=== PATIENT | male | born 1935 | race Caucasian/White ===

== ENCOUNTER 2023-09-07 21:00 | Inpatient (IN) | payer OTHER, SELFPAY ==
[2023-09-07] VITALS (7 sets, daily range): BP systolic 96–128; BP diastolic 54–89; BMI 28.8
[2023-09-07 12:03] LABS: % Basophils 0.4 % (0-2); % Eosinophils 0.2 % (0-6); % Immature Granulocytes 0.7 % (0-0.5); % Lymphocytes 9.8 % (20.5-51.1); % Monocytes 6.4 % (1.7-9.3); % Neutrophils 82.5 % (42.2-75.2); Absolute Basophils 0.1 10^3/uL (0-0.2); Absolute Immature Granulocytes 0.1 10^3/uL (0-0.05); Absolute Lymphocytes 1.7 10^3/uL (1.2-3.4); Absolute Monocytes 1.1 10^3/uL (0.1-0.6); Absolute Neutrophils 13.9 10^3/uL (1.4-6.5); Hematocrit 33.3 % (39.0-52.0); Hemoglobin 11.8 g/dL (13.0-18.0); Mean Corp Hgb Conc. 35.4 g/dL (33.0-37.0); Mean Corpuscular Hgb 33.6 pg (27.0-31.0); Mean Corpuscular Volume 94.9 fL (80.0-94.0); Mean Platelet Volume 10.8 fL (7.4-10.4); Nucleated Red Blood Cells % 0.1 % (-); Platelet Count 251 10^3/uL (130-400); Red Blood Cell Count 3.51 10^6/uL (4.70-6.10); White Blood Cell Count 16.9 10^3/uL (4.8-10.8)
[2023-09-07 12:14] LABS: ALT (SGPT) 18 U/L (0-50); AST (SGOT) 36 U/L (17-59); Albumin 3.9 g/dl (3.5-5.0); Alkaline Phosphatase 104 U/L (38-126); Blood Urea Nitrogen 19 mg/dl (9-20); Calcium 9.7 mg/dl (8.4-10.2); Carbon Dioxide 21 mmol/L (22-30); Chloride 105 mmol/L (98-107); Glucose 94 mg/dl (70-99); Potassium 3.4 mmol/L (3.5-5.1); Sodium 140 mmol/L (135-145); Total Bilirubin 1.6 mg/dl (0.2-1.3); Total Protein 6.5 g/dl (6.3-8.2); eGFR > 60.00
--- NOTE | 2023-09-07 16:44 | ED.GENMED ---
History of Present Illness
General
Chief Complaint: Swelling
Time Seen by Provider: 09/07/23 15:50
Travel History
Have you had any contact with someone who has COVID-19?: No
Do you have any symptoms of coronavirus? Fever > 100 degrees, chills, cough, shortness of breath, sore throat, loss of taste or smell, muscle aches, or headache?: No
History of Present Illness
History of Present Illness:
88-year-old male with history of aortic stenosis, coronary artery disease, hypertension, and hyperlipidemia presents to the emergency department for evaluation of progressive worsening left jaw swelling over the past 2 days. Has had difficulty
eating and swallowing fluids as a result. Denies any injuries or falls. Denies any fevers. Attempted to go to his dentist today however his dentist does not see emergent cases.
Past History
Past History
ED Past Medical History: CVA, HTN, Hypercholesterolemia and Other (BPH)
ED Past Surgical History: Orthopedic
Patient has exhibited threatening behavior?: No
PSI?: No
Social History
Tobacco: Former smoker
Alcohol: Occasional
Personal:
Living: alone
Family History
Family History: Negative Diabetes, Hypertension or CAD
Review of Systems
Review of Systems
Allergies reviewed?: Yes
All Other Systems: ROS reviewed and negative except as documented in HPI and ROS
Phy Exam
Physical Exam
Physical Exam:
GEN: Well appearing, NAD, WDWN
HEENT: Oral mucosa moist, no scleral icterus. Significant swelling to the left mandible and left lower gingiva, moderate trismus, oropharynx appears clear however difficult to visualize due to trismus. There is associated left cervical adenopathy
Cardiac: Regular rate
Lung: No respiratory distress, no tachypnea
MSK: No gross deformity or injuries
Skin: Good color, no pallor or jaundice, no rashes
Neuro: AO x3, moves all extremities freely
Psych: Calm, cooperative
Scores
Heart Failure Risk
Heart Failure Risk Score: Not Applicable
Course
Orders/Labs/Results
Orders:
Orders
09/07/23 11:53
Complete Blood Count/With Diff Urgent
Comprehensive Metabolic Panel Urgent
09/07/23 16:06
CT Neck With Iv Contrast Urgent
Comment:
Reason For Exam: L jaw swelling
0.9% Sodium Chloride 1000 ml [Nss] 1,000 ml IV BOLUS
09/07/23 16:24
Lactic Acid Q4H
Comment: CANCEL 2nd LACTIC ACID IF 1st LACTIC ACID IS LESS THAN 2
Blood Culture Q30M
GERDA Source: Blood/Venous
Specimen Description:
09/07/23 16:47
Blood Culture Q30M
GERDA Source: Blood/Venous
Specimen Description:
09/07/23 17:00
Ampicillin/Sulbactam 3 G [Unasyn] 3 gm 0.9% Sodium Chloride 100 ml [Nss] 100 ml IV NOW
Abnormal Lab Results
09/07/23
11:53
WBC 16.9 H 10^3/uL
(4.8-10.8)
RBC 3.51 L 10^6/uL
(4.70-6.10)
Hgb 11.8 L g/dL
(13.0-18.0)
Hct 33.3 L %
(39.0-52.0)
MCV 94.9 H fL
(80.0-94.0)
MCH 33.6 H pg
(27.0-31.0)
RDW 15.0 H %
(11.5-14.5)
MPV 10.8 H fL
(7.4-10.4)
Abs Immat Gran (auto) 0.1 H 10^3/uL
(0-0.05)
Absolute Neuts (auto) 13.9 H 10^3/uL
(1.4-6.5)
Absolute Monos (auto) 1.1 H 10^3/uL
(0.1-0.6)
Immature Gran % 0.7 H %
(0-0.5)
Neutrophils % 82.5 H %
(42.2-75.2)
Lymphocytes % 9.8 L %
(20.5-51.1)
Potassium 3.4 L mmol/L
(3.5-5.1)
Carbon Dioxide 21 L mmol/L
(22-30)
Total Bilirubin 1.6 H mg/dl
(0.2-1.3)
09/07/23 11:53
09/07/23 11:53
Vital Signs
Initial and Last Documented VS:
Initial Vital Signs
Temp Pulse Resp BP Pulse Ox
97.5 F 97 20 128/74 97
09/07/23 11:35 09/07/23 11:35 09/07/23 11:35 09/07/23 11:35 09/07/23 11:35
Last Documented Vital Signs
Temp Pulse Resp BP Pulse Ox
97.5 F 71 20 119/74 98
09/07/23 11:35 09/07/23 18:29 09/07/23 11:35 09/07/23 18:29 09/07/23 18:29
MDM/Problems Addressed
MDM/Problems Addressed:
Patient with moderate trismus making it challenging for him to eat and drink. There is no discernible abscess on CT. Unasyn given due to significant leukocytosis. Will require IV antibiotics and steroids to improve symptoms in order to be
suitable for discharge home
*Critical Care Note
Total Time (30-74mins, 75-104mins- exclusive of procedures): Not Applicable
ED Attending Note
-
Portions of this chart may have been created with voice recognition software.� Occasional wrong word or��sound alike� substitutions may have occurred due to the inherent limitations of voice recognition software.
Discharge Plan
Departure
Patient Disposition: Admit
Date of Disposition: 09/07/23
Time of Disposition: 19:50
Presentation/result/management discussed w/ accepting MD/DO: Hospitalist
Discharge Problem:
Dental infection, Cellulitis of face
Prescriptions:
No Action
aspirin 81 MG tablet,chewable
81 mg PO DAILY Qty: 90 0RF
potassium chloride [Klor-Con M20] 20 MEQ tablet,ER particles/crystals
20 meq PO DAILY
abiraterone 250 MG tablet
750 mg PO DAILY
prednisone 5 MG tablet
5 mg PO BID Qty: 0 0RF
calcium carbonate 500 mg calcium (1,250 mg) Tablet
500 mg PO DAILY
cholecalciferol (vitamin D3) [Vitamin D3] 50 mcg (2,000 unit) Capsule
50 mcg PO DAILY
acetaminophen 325 mg Tablet
650 mg PO Q6HPRN PRN (Reason: mild pain, fever, headache) Qty: 0 0RF
furosemide [Lasix] 40 mg Tablet
40 mg PO DAILY
atorvastatin [Lipitor] 80 mg Tablet
80 mg PO QPM
lisinopril 10 mg Tablet
10 mg PO DAILY
polyethylene glycol 3350 17 GRAMS powder in packet
8.5 grams PO DAILY
clopidogrel 75 MG tablet
75 mg PO QPM
Referrals:
Juan Manuel Murphy MD [Family Provider] -
Interventions
Interventions:
*Risk Screen - Suicide Last Done: 09/07/23 11:35
*General Assessment Last Done: 09/07/23 11:35
*Neglect/Abuse Screening Last Done: 09/07/23 11:35
*ED COVID-19 Vaccine History Last Done: 09/07/23 17:38
ED- Cardiac Assessment Last Done: 09/07/23 16:23
ED- Pulmonary Assessment Last Done: 09/07/23 16:23
[2023-09-07 16:47] LABS: Lactic Acid 1.5 mmol/L (0.7-2.0)
[2023-09-07] MEDS: NSS 1000 IV ×2 (17:10→22:29)
[2023-09-07] MEDS: UNASYN IV (18:11)
--- NOTE | 2023-09-07 20:14 | HPS.HSE ---
Addendum entered and electronically signed by Dhruv Woodward MD 09/07/23 23:17:
OMFS consulted
Original Note:
Family Physician
-
Family Physician: Juan Manuel Murphy
Chief Complaint
-
left jaw swelling
History of Present Illness
88 M with dementia, PMH significant for ASCVD, aortic stenosis, metastatic prostate cancer eval at ER for progressive worsening left jaw swelling over the past 2 days. Has had difficulty eating and swallowing fluids as a result.
Medical History
Past Medical History
Past Medical History: Reports Other (1. Proctitis, suspected stercoral. 2. Constipation. 3. Acute urinary retention. 4. Prostate cancer. 5. Dementia. 6. Atherosclerotic cardiovascular disease. 7. Aortic stenosis. 8. Benign hypertension.)
Additional Past Medical History:
1. Proctitis, suspected stercoral.
2. Constipation.
3. Acute urinary retention.
4. Prostate cancer.
5. Dementia.
6. Atherosclerotic cardiovascular disease.
7. Aortic stenosis.
8. Benign hypertension.
Past Surgical History: Reports Orthopedic
Social History
Unable to obtain full social history at this time due to: Dementia
Family History
Family History: Not pertinent
Allergies / Home Medications
Allergies reflects when Allergies were last updated in [employer].
Home Medications with original date entered in [employer]
Allergy/Medication List:
Allergies
Allergy/AdvReac Type Severity Reaction Status Date / Time
doxycycline Allergy STOMACH Verified 09/07/23 11:34
ISSUES
Home Medications
aspirin 81 mg chewable tablet 81 mg PO DAILY ##90 09/30/18
potassium chloride 20 mEq tablet,extended release(part/cryst) (Klor-Con M) 20 meq PO DAILY Supplement 06/26/21
abiraterone 250 mg tablet 750 mg PO DAILY Cancer 02/10/22
prednisone 5 mg tablet 5 mg PO BID Anti-inflammatory ##0 02/13/22
calcium carbonate 500 mg calcium (1,250 mg) tablet 500 mg PO DAILY Supplement 03/25/22
cholecalciferol (vitamin D3) 50 mcg (2,000 unit) capsule (Vitamin D3) 50 mcg PO DAILY Supplement 03/25/22
acetaminophen 325 mg tablet 650 mg PO Q6HPRN PRN mild pain, fever, headache #0 tabs 03/27/22
atorvastatin 80 mg tablet (Lipitor) 80 mg PO QPM 09/07/23
clopidogrel 75 mg tablet 75 mg PO QPM 09/07/23
furosemide 40 mg tablet (Lasix) 40 mg PO DAILY 09/07/23
lisinopril 10 mg tablet 10 mg PO DAILY 09/07/23
polyethylene glycol 3350 17 gram oral powder packet 8.5 grams PO DAILY 09/07/23
Review of Systems
-
Constitutional: Reports No Symptoms
EENT: Reports See HPI
Respiratory: Reports No Symptoms
Cardiac: Reports No Symptoms
Abdomen/GI: Reports No Symptoms
: Reports No Symptoms
Musculoskeletal: Reports No Symptoms
Skin: Reports No Symptoms
Neurological: Reports No Symptoms
Endocrine: Reports No Symptoms
Hematologic/Lymphatic: Reports No Symptoms
Psych: Reports No Symptoms
Physical Exam
Vital Signs
Vital Signs
Temp Pulse Resp BP Pulse Ox
97.5 F 75 20 117/76 98
09/07/23 11:35 09/07/23 19:52 09/07/23 11:35 09/07/23 19:52 09/07/23 19:52
Physical Exam
General: Other (see below )
Laboratory Results
-
09/07/23 11:53
09/07/23 11:53
Laboratory Results
Lactic Acid Cancelled 09/07/23 20:15
Total Bilirubin 1.6 mg/dl (0.2-1.3) H 09/07/23 11:53
AST 36 U/L (17-59) 09/07/23 11:53
ALT 18 U/L (0-50) 09/07/23 11:53
Alkaline Phosphatase 104 U/L (38-126) 09/07/23 11:53
Data Reviewed
-
CT Scan: Report Reviewed by me
Lab Data: Labs Reviewed by me
Old Records: Reviewed
Impression/Plan
-
Reviewed VS: Afebrile. No ST. BP 115/75
PE
Gen: not toxic
HEENT: Significant swelling to the left mandible and left lower gingiva, moderate trismus, oropharynx appears clear, difficult to visualize due to trismus.
Neck: supple
Lungs: CTA
Cor: RRR S1 S2
Abdomen: soft benign abdomen
LEASE PURCHASE TRUCK DRIVER: NFND
MS: no edema
Psych: dementia
Data
WCC 16.9
Hgb 11.8 - baseline low 12s - hi 12s
MCV 98
K3.4 CO2 21
Cr 1.1 eGFR > 60
TB 1.6
BCx sent
09/07/[address]:
- There is facial swelling on the left, no discrete abscess in the soft tissues.
- There is a lucency in the #21 tooth in the left mandible. Question tooth abscess causing the soft tissue swelling. Correlation with previous dental x-rays. The examination is severely limited due to the artifact from the dental amalgam.
- No change in a 3 cm soft tissue mass in the right side of the oropharynx. This has been felt to represent a benign lesion.
- No adenopathy.
- Osseous metastatic disease has been noted on prior imaging, patient with a history of prostate cancer and bone metastatic disease.
Prior admission: 02/09/22 - 02/13/22; Confusion and weakness suspected secondary to proctitis.
ASSESSMENT & PLAN
No. 21 tooth presumed tooth abscess causing the soft tissue swelling of Lt face
3 cm soft tissue mass in the right side of the oropharynx
No LAD
- conr. empiric IV Unasyn
- IVF
- Narcotic analgesia PRN
Dementia Alzheimer type ([facility])
- HX acute delirium during previous hospitalizations.
ASCVD
Aortic Stenosis
- Stable. No chest pain / dyspnea / etc.
- Continue DAPT, statin.
Metastatic Prostate Cancer
- Multiple bony metastases noted on prior imaging.
- PET done 10/2021 with only FDG avid lesion noted in L3. Other lesions sclerotic.
- Continue Casodex.
Benign Hypertension
Azotemia
- Stable.
- on lisinopril
DVT Prophylaxis: SQH
Code Status: DNR per prior record
IP MS
[2023-09-07] MEDS: DECADRON 6 MG IV (20:20)
--- NOTE | 2023-09-07 21:07 | CON.ORS ---
Consultation - Oral Surgery
Subjective
88 year old male with past medical history of dementia, ASCVD, HTN, aortic stenosis, metastatic prostate cancer consulted for left facial cellulitis. Patient presented to ED for worsening left facial swelling over the past 2 days and reported he
has had pain in the left lower teeth but is unsure which one. Patient was alone in the room. He reported the swelling got worse, he has difficulty opening his mouth due to pain and swelling with difficulty eating and drinking but is still able to
tolerate PO. Patient denies dysphagia, dyspnea or orthopnea and is on room air. Patient reports he saw a dentist not too long ago but was going to see a new dentist. Denies N/V/F/C at home. WBC count is 16.9 today.
Past Medical History
Past Medical History: Arrhythmia, CAD, Cancer and HTN
Past Surgical History: Orthopedic
Family History: Not Pertinent
Alcohol: None
Drug: None
Tobacco: Non-smoker
Medications / Allergies
Allergies
Allergy/AdvReac Type Severity Reaction Status Date / Time
doxycycline Allergy STOMACH Verified 09/07/23 11:34
ISSUES
Review of Systems
Eyes: Denies Blurry Vision or Double Vision
ENT: Reports Tooth Pain (left mandibular tooth pain but unsure which one) and Other (left facial swelling with trismus due to pain and swelling)
Cardiovascular: Reports No Symptoms
Respiratory: Reports No Symptoms; Denies Shortness of Breath
Gastrointestinal: Reports No Symptoms; Denies Nausea/Vomiting
Genitourinary: Reports Deferred
Vital Signs
Temp Pulse Resp BP Pulse Ox
36.4 C 75 20 106/54 98
09/07/23 11:35 09/07/23 20:24 09/07/23 11:35 09/07/23 20:24 09/07/23 20:24
Physical Exam
General: Not in Acute Distress
Extra-oral Exam: Edema (Left buccal/facial edema with tenderness to palpation, slight induration to palpation, no fluctuance, no erythema, no warmth to touch, left inferior border of mandible is palpable), Tenderness to Palpation (Left buccal/facial
edema with tenderness to palpation, slight induration to palpation, no fluctuance, no erythema, no warmth to touch, left inferior border of mandible is palpable), V2 10/10 Bilaterally, V3 10/10 Bilaterally and Other (Trismus to 15-20 due to pain and
swelling but I can open patient up more with pressure); Negative Erythema (No left facial erythema)
Intra-oral Exam: Edema (Left buccal submandibular edema without erythema but with tenderness to palpation, no purulent discharge, slight induration to area, no fluctuance, erupted teeth #20,21,22 with distal caries on tooth #21, no floor of the
mouth edema), Erythema (no left buccal or lingual mandibular erythema), Induration, Missing Teeth and Floor of Mouth Soft Without Elevation; Negative Purulent Discharge, Gingival Abscesses or Fistulas or Fluctuance
Imaging Results
CT Neck with IV contrast shows:
There is facial swelling on the left, no discrete abscess in the soft tissues and there is a lucency in the #21 tooth in�the left mandible where there is a '?' on the scan showing a cavity on the distal aspect of tooth #21 and not an acute abscess.
Tooth #20 appears to be root canal treated with a chronic periapical pathology at the root.��
CT Results
CT Neck with IV contrast shows:
There is facial swelling on the left, no discrete abscess in the soft tissues and there is a lucency in the #21 tooth in�the left mandible where there is a '?' on the scan showing a cavity on the distal aspect of tooth #21 and not an acute abscess.
Tooth #20 appears to be root canal treated with a chronic periapical pathology at the root.��
Assessment / Plan
88 year old male consulted for left facial cellulitis after presenting to the ED for worsening left facial swelling over the past 2 days with history of left mandibular tooth pain found to have cellulitis/inflammation of the left face/mandible
without any localized abscess. The cellulitis could be related to either teeth #20,21 and will require evaluation as an outpatient for possible extraction. Due to the patient having an elevated WBC at 16.9 and cellulitis on examination and CT scan,
I would recommend he get several doses of IV antibiotics (IV Unasyn) as an inpatient while in the hospital and then discharge on Augmentin 875mg BID x 10 days with possible addition of Flagyl 500mg q8h x 10 days and follow-up with oral surgery as an
outpatient for evaluation and treatment. Due to the lack of abscess collection, there is no indication for incision and drainage at this time.
1. No surgical treatment indicated at this time
2. IV antibiotics (IV Unasyn) as an inpatient while in the hospital
3. Discharge on Augmentin 875mg BID x 10 days with possible addition of Flagyl 500mg q8h x 10 days
4. Follow-up with oral surgery as an outpatient for evaluation and treatment
Data Reviewed
Diagnostic Imaging: Image personally visualized and interpreted, Report Reviewed by me, Discussed with Nurse and Discussed with Patient
CT Scan: Image personally visualized and interpreted, Report Reviewed by me, Discussed with Nurse and Discussed with Patient
Labs: Labs Reviewed by me and Discussed with Patient
[2023-09-08] VITALS (8 sets, daily range): BP systolic 107–146; BP diastolic 52–115; BMI 31.4
[2023-09-08] MEDS: UNASYN IV ×4 (05:47→17:54)
[2023-09-08 05:55] LABS: % Basophils 0.3 % (0-2); % Immature Granulocytes 0.8 % (0-0.5); % Lymphocytes 3.6 % (20.5-51.1); % Monocytes 2.7 % (1.7-9.3); % Neutrophils 92.6 % (42.2-75.2); Absolute Immature Granulocytes 0.1 10^3/uL (0-0.05); Absolute Lymphocytes 0.4 10^3/uL (1.2-3.4); Absolute Monocytes 0.3 10^3/uL (0.1-0.6); Absolute Neutrophils 10.9 10^3/uL (1.4-6.5); Hematocrit 28.7 % (39.0-52.0); Mean Corp Hgb Conc. 34.8 g/dL (33.0-37.0); Mean Corpuscular Hgb 32.9 pg (27.0-31.0); Mean Corpuscular Volume 94.4 fL (80.0-94.0); Mean Platelet Volume 10.7 fL (7.4-10.4); Nucleated Red Blood Cells % 0 % (-); Platelet Count 214 10^3/uL (130-400); Red Blood Cell Count 3.04 10^6/uL (4.70-6.10); Red Cell Dist. Width 14.7 % (11.5-14.5); White Blood Cell Count 11.8 10^3/uL (4.8-10.8)
[2023-09-08 06:16] LABS: Blood Urea Nitrogen 17 mg/dl (9-20); Calcium 8.4 mg/dl (8.4-10.2); Carbon Dioxide 23 mmol/L (22-30); Chloride 109 mmol/L (98-107); Estimated Creatinine Clearance 60 ml/min; Glucose 117 mg/dl (70-99); Potassium 3.3 mmol/L (3.5-5.1); Sodium 139 mmol/L (135-145); eGFR > 60.00
[2023-09-08] MEDS: MIRALAX PO (09:15)
[2023-09-08] MEDS: ZESTRIL PO (09:15)
[2023-09-08] MEDS: LASIX PO (09:15)
[2023-09-08] MEDS: LOW STRENGTH ASPIRIN PO (09:15)
[2023-09-08] MEDS: DECADRON 4 MG IV ×2 (09:15→20:45)
[2023-09-08] MEDS: HEPARIN 5000 UNITS SC ×2 (09:15→20:45)
[2023-09-08] MEDS: KCL PO (09:15)
[2023-09-08] MEDS: NSS 1000 IV (09:16)
[2023-09-08] MEDS: NON-FORMULARY ITEM PO (12:22)
--- NOTE | 2023-09-08 15:54 | W.PN.HOSP.TC ---
Today's Communication/Plan
-
continue abx
cl diet
Assessment / Plan
Assessment / Plan
09/07/[address]:
- There is facial swelling on the left, no discrete abscess in the soft tissues.
- There is a lucency in the #21 tooth in� the left mandible. Question tooth abscess causing the soft tissue swelling. Correlation with previous dental x-rays. The examination is severely limited due to the artifact from the dental amalgam.
- No change in a 3 cm soft tissue mass in the right side of the oropharynx. This has been felt to represent a benign lesion.
- No adenopathy.
- Osseous metastatic disease has been noted on prior imaging, patient with a history of prostate cancer and bone metastatic disease.

1. Left lower mandible odontogenic abscess involving tooth #21
Left facial cellulitis
-CT neck finding as above
-Evaluated by OMFS and no indication for surgery
-maintain on Unasyn for now
-CL diet , will advance depending on patient tolerated
2. Sacral/buttock pressure inj - POA
- wound care consulted
3. Metastatic prostate cancer
- Multiple bony metastases noted on prior imaging.
- PET done 10/2021 with only FDG avid lesion noted in L3.� Other lesions sclerotic.
- Resume back on abiraterone home dose
CAD s/p LCX/RCA stenting
Chronic normocytic anemia
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
Coronary disease
Sev Aortic stenosis s/p TAVR
Essential HTN
HLD
DVT Prophylaxis: SQH
Code Status:� DNR per prior record
Anticipated Discharge: 24 - 48 hours
Subjective/Interval History
-
Date of Service: September 08, 2023
Resting comfortably in bed
complaining some pain in left Mandible/facial area
Objective Data
-
Labs:
Laboratory Results
09/08/23
05:40
WBC 11.8 H
Hgb 10.0 L
Hct 28.7 L
Plt Count 214
Sodium 139
Potassium 3.3 L
Chloride 109 H
Carbon Dioxide 23
BUN 17
Creatinine 0.9
Glucose 117 H
Calcium 8.4
Vital Signs:
Vital Signs
Temp Pulse Resp BP Pulse Ox
98.5 F 69 18 110/60 95
09/08/23 07:57 09/07/23 23:54 09/07/23 23:54 09/08/23 05:00 09/08/23 13:15
Review of Systems
-
All other systems: Reviewed and negative
Physical Exam
-
General: Comfortable
HEENT: Other (left facial swelling, tender ); Negative Oxygen
Respiratory: Clear to Auscultation
Cardiac: Regular Rhythm and S1/S2; Negative Murmur
GI: Soft, Nontender and Nondistended
Neuro: Awake, Alert, No Motor Deficits and Nonfocal/Grossly Intact
Psych: Calm
--- NOTE | 2023-09-08 15:57 | PTCARENOTE ---
Received pt from ER via stretcher, accompanied by ER staff x1 and pt's daughter. Pt drowsy but arousable, keeps eyes closed when conversing; oriented to self/place/birthdate; forgetful. MARINELLI very slowly; unable to assist with transfer to bed. Fall
prec initiated. VSS. On room air- pulse ox 98%, no SOB noted. Abd obese, soft, to start clear liquids; aspiration prec maintained. Incont large amts BM on arrival to [facility]. Incont urine. Pt with Lt facial redness/Lt facial edema. IVF's NSS @
80 ml/hr infusing via Rt AC site without sx of infiltration. Resting in bed at present. Will continue to monitor.
--- NOTE | 2023-09-08 16:20 | WOUNDNOTE ---
[facility] RN note: Patient admitted with dental abscess with local soft tissue cellulitis. Patient lives at home with daughter.
See H&P for complete history.
PMH: ASCVD, aortic stenosis, metastatic prostate ca with bony mets, proctitis, constipation, acute urinary retention, dementia, meniscus repair.
Wound Location and type/assessment: Patient admitted with: R hip deep dermal stage 2 vs DTI with scarring suspect from chronic pressure, wound pink with purple area, scabbed area and yellow fibrin. Sacral/coccyx/buttocks dull red along with MASD
and L sacral buttocks red area. R plantar lateral 5th MTH dry callus. Faint fungal rash noted on R lateral heel.
Appetite: on clear liquid diet currently.
Pressure redistribution devices in place: Advanta with Accumax. Patient cannot turn self in bed. Spoke with ANNEL Alvarado re: recommend air overlay or air mattress.
Plan: R hip dressing changed. Silicone foam applied to sacrum. Patient turned with help from ANNEL Alvarado. Heels off bed with pillow.
Updated and confirmed orders with Dr. Nevarez.
Updated care plan and will follow as needed.
Note to case management of equipment requested for discharge: air mattress recommended.
Recommend follow up at wound care center and crop farm helper upon discharge.
--- NOTE | 2023-09-08 16:26 | WOUNDNOTE ---
SACRAL COCCYX/BUTTOCKS
--- NOTE | 2023-09-08 16:27 | WOUNDNOTE ---
R PLANTAR LATERAL 5TH MTH
[2023-09-08] MEDS: FLUSH (NSS) 1 FLUSH IV (17:54)
[2023-09-08] MEDS: LIPITOR PO ×2 (17:54→18:01)
[2023-09-08] MEDS: PLAVIX 75 MG PO (17:54)
[2023-09-08] MEDS: DESENEX/MITRAZOL/ZEASORB 1 APPLIC TOPICAL (22:59)
[2023-09-08] MEDS: LOTRIMIN 1% CREAM 1 APPLIC TOPICAL (22:59)
[2023-09-09] VITALS (9 sets, daily range): BP systolic 141–163; BP diastolic 67–92; PULSE 60–61; O2SAT 95; BMI 31.4
[2023-09-09] MEDS: UNASYN IV ×5 (01:16→23:59)
[2023-09-09] MEDS: NSS 1000 IV (04:21)
[2023-09-09 06:08] LABS: Hematocrit 31.5 % (39.0-52.0); Mean Corp Hgb Conc. 34.9 g/dL (33.0-37.0); Mean Corpuscular Hgb 33.5 pg (27.0-31.0); Mean Platelet Volume 11.2 fL (7.4-10.4); Platelet Count 261 10^3/uL (130-400); Red Blood Cell Count 3.28 10^6/uL (4.70-6.10); Red Cell Dist. Width 14.5 % (11.5-14.5); White Blood Cell Count 15.7 10^3/uL (4.8-10.8)
[2023-09-09 06:33] LABS: Blood Urea Nitrogen 16 mg/dl (9-20); Carbon Dioxide 24 mmol/L (22-30); Chloride 110 mmol/L (98-107); Estimated Creatinine Clearance 62 ml/min; Glucose 137 mg/dl (70-99); Potassium 3.2 mmol/L (3.5-5.1); Sodium 138 mmol/L (135-145); eGFR > 60.00
[2023-09-09] MEDS: LOW STRENGTH ASPIRIN 81 MG PO (09:28)
[2023-09-09] MEDS: MIRALAX 8.5 GRAMS PO (09:28)
[2023-09-09] MEDS: KCL 20 MEQ PO (09:28)
[2023-09-09] MEDS: LASIX 40 MG PO (09:28)
[2023-09-09] MEDS: ZESTRIL 10 MG PO (09:29)
[2023-09-09] MEDS: DECADRON 4 MG IV ×2 (09:29→20:14)
[2023-09-09] MEDS: HEPARIN 5000 UNITS SC ×2 (09:29→20:13)
[2023-09-09] MEDS: DESENEX/MITRAZOL/ZEASORB 1 APPLIC TOPICAL ×2 (09:31→20:33)
[2023-09-09] MEDS: NON-FORMULARY ITEM 750 MG PO (09:32)
[2023-09-09] MEDS: LOTRIMIN 1% CREAM 1 APPLIC TOPICAL ×2 (09:55→20:34)
--- NOTE | 2023-09-09 14:53 | W.PN.HOSP.TC ---
Today's Communication/Plan
-
advance diet
continue abx
possible discharge tomorrow
Assessment / Plan
Assessment / Plan
09/07/[address]:
- There is facial swelling on the left, no discrete abscess in the soft tissues.
- There is a lucency in the #21 tooth in� the left mandible. Question tooth abscess causing the soft tissue swelling. Correlation with previous dental x-rays. The examination is severely limited due to the artifact from the dental amalgam.
- No change in a 3 cm soft tissue mass in the right side of the oropharynx. This has been felt to represent a benign lesion.
- No adenopathy.
- Osseous metastatic disease has been noted on prior imaging, patient with a history of prostate cancer and bone metastatic disease.

1. Left lower mandible odontogenic abscess involving tooth #21
Left facial cellulitis
-CT neck finding as above
-Evaluated by OMFS and no indication for surgery
-Facial swelling improving rapidly. Pain is getting better as well. Continue on Unasyn for now.
-Starting on mechanical soft diet.
2. Right hip pressure inj stage II - POA
- wound care consulted
3. Metastatic prostate cancer
- Multiple bony metastases noted on prior imaging.
- PET done 10/2021 with only FDG avid lesion noted in L3.� Other lesions sclerotic.
- Resume back on abiraterone home dose
CAD s/p LCX/RCA stenting
Chronic normocytic anemia
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
Coronary disease
Sev Aortic stenosis s/p TAVR
Essential HTN
HLD
DVT Prophylaxis: SQH
Code Status:� DNR per prior record
Anticipated Discharge: Within 24 hours
Subjective/Interval History
-
Date of Service: September 09, 2023
facial swelling is improved
patient requesting to be started on solid diet
Objective Data
-
Labs:
Laboratory Results
09/09/23
05:27
WBC 15.7 H
Hgb 11.0 L
Hct 31.5 L
Plt Count 261 D
Sodium 138
Potassium 3.2 L
Chloride 110 H
Carbon Dioxide 24
BUN 16
Creatinine 0.9
Glucose 137 H
Calcium 8.0 L
Vital Signs:
Vital Signs
Temp Pulse Resp BP Pulse Ox
98.1 F 59 18 150/76 96
09/09/23 07:35 09/09/23 09:28 09/09/23 07:35 09/09/23 09:28 09/09/23 07:35
I&O
09/08/23 09/09/23 09/10/23
06:59 06:59 06:59
Intake Total 740 / 740
Balance 740 / 740
Review of Systems
-
All other systems: Reviewed and negative
Physical Exam
-
General: Comfortable
HEENT: Other (left facial swelling, tender ); Negative Oxygen
Neuro: Awake, Alert, No Motor Deficits and Nonfocal/Grossly Intact
Psych: Calm
--- NOTE | 2023-09-09 15:00 | WOUNDNOTE ---
[facility] RN note: Spoke with PCT Silvia who confirmed patient is on a [employer] air overlay.
[2023-09-09] MEDS: LIPITOR 80 MG PO (18:30)
[2023-09-09] MEDS: PLAVIX 75 MG PO (18:30)
[2023-09-09 22:41] LABS: COVID-19 Antigen Negative (Negative)
[2023-09-10] MEDS: UNASYN IV ×4 (04:59→23:45)
[2023-09-10 07:00] LABS: Hematocrit 30.1 % (39.0-52.0); Hemoglobin 10.6 g/dL (13.0-18.0); Mean Corp Hgb Conc. 35.2 g/dL (33.0-37.0); Mean Corpuscular Volume 93.8 fL (80.0-94.0); Mean Platelet Volume 10.8 fL (7.4-10.4); Platelet Count 253 10^3/uL (130-400); Red Blood Cell Count 3.21 10^6/uL (4.70-6.10); Red Cell Dist. Width 14.6 % (11.5-14.5); White Blood Cell Count 14.7 10^3/uL (4.8-10.8)
[2023-09-10 07:51] LABS: Blood Urea Nitrogen 17 mg/dl (9-20); Calcium 7.8 mg/dl (8.4-10.2); Carbon Dioxide 23 mmol/L (22-30); Chloride 112 mmol/L (98-107); Estimated Creatinine Clearance 62 ml/min; Glucose 119 mg/dl (70-99); Potassium 3.4 mmol/L (3.5-5.1); Sodium 139 mmol/L (135-145); eGFR > 60.00
[2023-09-10 07:56] VITALS: BP 135/76
[2023-09-10] MEDS: LOTRIMIN 1% CREAM 1 APPLIC TOPICAL ×2 (09:04→20:20)
[2023-09-10] MEDS: DECADRON 4 MG IV (09:05)
[2023-09-10] MEDS: HEPARIN 5000 UNITS SC ×2 (09:09→20:20)
[2023-09-10] MEDS: DESENEX/MITRAZOL/ZEASORB 1 APPLIC TOPICAL ×2 (09:35→20:21)
[2023-09-10] MEDS: KCL PO (09:38)
[2023-09-10] MEDS: LASIX PO (09:38)
[2023-09-10] MEDS: ZESTRIL PO (09:39)
[2023-09-10] MEDS: MIRALAX PO (09:39)
[2023-09-10] MEDS: NON-FORMULARY ITEM PO (09:39)
[2023-09-10] MEDS: LOW STRENGTH ASPIRIN PO (09:39)
--- NOTE | 2023-09-10 11:16 | CM ---
Reviewed chart, placed a call to patient's daughter to obtain information for assessment. Patient's daughter answered and stated that she could talk. Patient's daughter stated that patient lives with her in a two story home with a full flight of
steps and two steps to enter. She described patient as dependent on her and his son who lives close, for all ADLs, personal care, dressing, bathing and ambulates short distances with an s.p cane, and a w/c for longer communal distances.
Patient's daughter assists patient with transferring from sit to stand, stand to sit, and assists him in the mornings with getting out of bed and evenings getting in bed. She confirmed that she also does all the gang supervisor pipe lines, prepares meals for
patient, does the laundry, and cleans. She drives patient to all his appointments and does all the shopping. She is retired so she stated that her main job is dedicating all caregiving to patient. Patient's son is also supportive and close and does
most of the driving. Between the both of them (he was on speakerphone) they are able to handle the scope of patient's needs. Patient's bathroom is handicap accessible and he has a shower chair.
Patient uses [facility] for all of his medications. His PCP is Dr. Juan Manuel Murphy. He does have a prescription plan.
Patient has not been to SNF in the past. He has had VN services through (PT/OT). Patient's son stated that he does not want patient to transfer to a SNF as he becomes more confused and agitated. Patient is mildly confused at baseline per his
children.
Patient's daughter and son confirmed that they can transport patient home when he is medically stable. They are agreeable to home PT/OT if indicated on behalf of medical staff and they selected VN services.
Plan: Case management will continue to follow and assist with discharge planning. Home no needs vrs home with VN services if indicated at time of discharge.
--- NOTE | 2023-09-10 12:06 | PN.CDI ---
CDI
- -
CDI:
Physician Documentation Request
Admit Date: 09/07/23 21:00
Dear Doctor Roque,
Patient admitted for face cellulitis.
Potassium chloride 20 meq PO daily ordered.
09/07/23 09/08/23 09/09/23 09/10/23
11:53 05:40 05:27 06:42
Potassium 3.4 L 3.3 L 3.2 L 3.4 L
Based on the above, could you clarify in the progress notes, the appropriate diagnosis, if significant, that supports the above abnormalities and additional evaluation, monitoring and/or treatment rendered:
Hypokalemia
Abnormal lab value insignificant
Other
Use of terms such as suspected, likely, concern for, or probable (associated with a specific diagnosis that is being evaluated, monitored, or treated as if it exists) are acceptable and can be coded in the inpatient setting, when documented at the
time of discharge.
Thank you,
Maria Alejandra Lincoln RN, BSN
CDI Specialist
Available via [facility] text
Please use your independent medical judgment in providing your response.
--- NOTE | 2023-09-10 13:02 | WOUNDNOTE ---
WOC RN note: yaneth texted Youth Development Professional Kristine Melvin re: recommend hospital bed with air overlay or air mattress; patient has R hip pressure injury.
--- NOTE | 2023-09-10 13:10 | WOUNDNOTE ---
WOC RN note: joseer texted Scallop Binder Mary Gomez re: recommend hospital bed with air overlay or air mattress; patient has R hip pressure injury.
--- NOTE | 2023-09-10 13:23 | CM ---
Received TT from CM that patient/family refused SNF.
Plan: Case management will continue to follow and assist with discharge planning. Home vrs home with VN services.
--- NOTE | 2023-09-10 13:24 | CM ---
Patient's family not agreeable with PT's SNF recommendation.
Sent home care referral to VNA liaison and forwarded bed recommendation from Wound Care Nurse
[2023-09-10 13:55] LABS: Venous Blood Gas B.E. -2.6 mmol/L (-4 to +4); Venous Blood Gas HCO3 23.2 mmol/L (22-27); Venous Blood Gas pCO2 43 mmHg (35-48); Venous Blood Gas pH 7.34 (7.32-7.43); Venous Blood Gas pO2 56 mmHg (30-50)
--- NOTE | 2023-09-10 14:15 | WOUNDNOTE ---
[facility] RN note: t/c Spoke with patient's daughter Luana who stated patient sleeps in a regular bed at home. Daughter has been aware and has been treating patient's R hip ulcer at home. Suggested a hospital bed with air overlay or air mattress.
Daughter stated she is interested in using the Waffle air overlay he has and is willing to purchase side rails for his bed. Instructed daughter pressure injury prevention measures with q 2 hr turning (30 degree turns using pillow/s), heel elevation
off bed with pillows, using air chair cushion. Daughter stated she didn't see an air chair cushion. t/c 3 W, spoke with nurse educator Onelia who will give patient an air chair cushion. t/c SPD and ordered a manual waffle air inflator and TruVue
lite boots; ANNEL Chester aware to give to daughter/patient.
[2023-09-10 14:54] VITALS: BP 122/66
--- NOTE | 2023-09-10 15:40 | W.PN.HOSP.TC ---
Today's Communication/Plan
-
continue abx
Assessment / Plan
Assessment / Plan
09/07/[address]:
- There is facial swelling on the left, no discrete abscess in the soft tissues.
- There is a lucency in the #21 tooth in� the left mandible. Question tooth abscess causing the soft tissue swelling. Correlation with previous dental x-rays. The examination is severely limited due to the artifact from the dental amalgam.
- No change in a 3 cm soft tissue mass in the right side of the oropharynx. This has been felt to represent a benign lesion.
- No adenopathy.
- Osseous metastatic disease has been noted on prior imaging, patient with a history of prostate cancer and bone metastatic disease.

1. Left lower mandible odontogenic abscess involving tooth #21
Left facial cellulitis
-CT neck finding as above
-Evaluated by OMFS and no indication for surgery
-Facial swelling improving rapidly. Pain is getting better as well. Continue on Unasyn for now.
-Starting on mechanical soft diet.
2. Right hip pressure inj stage II - POA
- wound care consulted
3. Metastatic prostate cancer
- Multiple bony metastases noted on prior imaging.
- PET done 10/2021 with only FDG avid lesion noted in L3.� Other lesions sclerotic.
- Resume back on abiraterone home dose
4. Mild TME
- patient is somnolent. avoid sedative medication. VBG showing pco2.
- No other clear issues
5. Hypokalemia
-mild, replace with 20meq
CAD s/p LCX/RCA stenting
Chronic normocytic anemia
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
Coronary disease
Sev Aortic stenosis s/p TAVR
Essential HTN
HLD
DVT Prophylaxis: SQH
Code Status:� DNR per prior record
Anticipated Discharge: Within 24 hours
Subjective/Interval History
-
Date of Service: September 10, 2023
somnolent in morning today
not co-operating with morning med administration
afebrile overnight
Objective Data
-
Labs:
Laboratory Results
09/10/23
06:42
WBC 14.7 H
Hgb 10.6 L
Hct 30.1 L
Plt Count 253
Sodium 139
Potassium 3.4 L
Chloride 112 H
Carbon Dioxide 23
BUN 17
Creatinine 0.9
Glucose 119 H
Calcium 7.8 L
Vital Signs:
Vital Signs
Temp Pulse Resp BP Pulse Ox
97.1 F 55 17 122/66 95
09/10/23 14:54 09/10/23 14:54 09/10/23 14:54 09/10/23 14:54 09/10/23 14:54
I&O
09/09/23 09/10/23 09/11/23
06:59 06:59 06:59
Intake Total 740 / 740 810 / 810
Output Total 100 / 100
Balance 740 / 740 710 / 710
Review of Systems
-
Unable to obtain full review of systems at this time due to: Acuity
Physical Exam
-
General: Negative Respiratory Distress or Appears in Distress
HEENT: Other (left lower mandibular swelling); Negative Oxygen
Neuro: Other (somnolent); Negative Oriented
[2023-09-10] MEDS: PLAVIX 75 MG PO (17:32)
[2023-09-10] MEDS: LIPITOR 80 MG PO (17:32)
[2023-09-10 23:15] VITALS: BP 145/70
[2023-09-11] MEDS: UNASYN IV ×3 (05:32→17:30)
--- NOTE | 2023-09-11 05:37 | PTCARENOTE ---
pt began audibly wheezing after repositioning/changing. SaO2 on RA 94-95%. PAM Cowartb notified, portable CXR and 1x duoneb ordered. resting comfortably at the moment, will monitor.
[2023-09-11] MEDS: DUONEB 3 ML INH (05:39)
[2023-09-11 07:00] VITALS: BP 127/68
[2023-09-11 07:39] LABS: Hematocrit 29.2 % (39.0-52.0); Hemoglobin 10.1 g/dL (13.0-18.0); Mean Corp Hgb Conc. 34.6 g/dL (33.0-37.0); Mean Corpuscular Hgb 32.9 pg (27.0-31.0); Mean Corpuscular Volume 95.1 fL (80.0-94.0); Platelet Count 224 10^3/uL (130-400); Red Blood Cell Count 3.07 10^6/uL (4.70-6.10); Red Cell Dist. Width 14.7 % (11.5-14.5); White Blood Cell Count 11.2 10^3/uL (4.8-10.8)
[2023-09-11 08:08] LABS: Blood Urea Nitrogen 16 mg/dl (9-20); Calcium 7.7 mg/dl (8.4-10.2); Carbon Dioxide 22 mmol/L (22-30); Chloride 109 mmol/L (98-107); Estimated Creatinine Clearance 70 ml/min; Glucose 99 mg/dl (70-99); Potassium 3.1 mmol/L (3.5-5.1); Sodium 138 mmol/L (135-145); eGFR > 60.00
[2023-09-11] MEDS: KCL 20 MEQ PO (08:34)
[2023-09-11] MEDS: MIRALAX 8.5 GRAMS PO (08:34)
[2023-09-11] MEDS: LOW STRENGTH ASPIRIN 81 MG PO (08:34)
[2023-09-11] MEDS: LASIX 40 MG PO (08:34)
[2023-09-11] MEDS: ZESTRIL 10 MG PO (08:35)
[2023-09-11] MEDS: HEPARIN 5000 UNITS SC ×2 (08:35→21:02)
[2023-09-11] MEDS: LOTRIMIN 1% CREAM 1 APPLIC TOPICAL ×2 (08:40→21:02)
[2023-09-11] MEDS: NON-FORMULARY ITEM 750 MG PO (08:41)
[2023-09-11] MEDS: DESENEX/MITRAZOL/ZEASORB 1 APPLIC TOPICAL ×2 (08:46→21:03)
[2023-09-11] MEDS: KCL 270 MEQ IV (09:53)
--- NOTE | 2023-09-11 10:12 | W.PN.HOSP.TC ---
Today's Communication/Plan
-
remains somnolent, check CT head
avoid sedative meds
PT eval later today
Assessment / Plan
Assessment / Plan
09/07/[address]:
- There is facial swelling on the left, no discrete abscess in the soft tissues.
- There is a lucency in the #21 tooth in� the left mandible. Question tooth abscess causing the soft tissue swelling. Correlation with previous dental x-rays. The examination is severely limited due to the artifact from the dental amalgam.
- No change in a 3 cm soft tissue mass in the right side of the oropharynx. This has been felt to represent a benign lesion.
- No adenopathy.
- Osseous metastatic disease has been noted on prior imaging, patient with a history of prostate cancer and bone metastatic disease.

1. Left lower mandible odontogenic abscess involving tooth #21
Left facial cellulitis
-CT neck finding as above
-Evaluated by OMFS and no indication for surgery
-Facial swelling improving rapidly. Pain is getting better as well. Continue on Unasyn for now.
-Starting on mechanical soft diet.
2. Right hip pressure inj stage II - POA
- wound care consulted
3. Metastatic prostate cancer
- Multiple bony metastases noted on prior imaging.
- PET done 10/2021 with only FDG avid lesion noted in L3.� Other lesions sclerotic.
- Resume back on abiraterone home dose
4. Mild TME
- patient is somnolent. avoid sedative medication.
- No other clear issues
- VBG showing normal pco2. not getting sedative medication
- Check CT head
5. Hypokalemia
-replace with 40meq IV K rider.
CAD s/p LCX/RCA stenting
Chronic normocytic anemia
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
Coronary disease
Sev Aortic stenosis s/p TAVR
Essential HTN
HLD
DVT Prophylaxis: SQH
Code Status:� DNR per prior record
Anticipated Discharge: Within 24 hours
Subjective/Interval History
-
Date of Service: September 11, 2023
patient remains somnolent
refusing medication yesterday
Objective Data
-
Labs:
Laboratory Results
09/11/23
06:26
WBC 11.2 H
Hgb 10.1 L
Hct 29.2 L
Plt Count 224
Sodium 138
Potassium 3.1 L
Chloride 109 H
Carbon Dioxide 22
BUN 16
Creatinine 0.8
Glucose 99
Calcium 7.7 L
Vital Signs:
Vital Signs
Temp Pulse Resp BP Pulse Ox
97.3 F 61 16 127/68 92
09/11/23 07:00 09/11/23 07:00 09/11/23 07:00 09/11/23 08:34 09/11/23 09:38
I&O
09/10/23 09/11/23 09/12/23
06:59 06:59 06:59
Intake Total 810 / 810 840 / 840
Output Total 100 / 100
Balance 710 / 710 840 / 840
Review of Systems
-
Unable to obtain full review of systems at this time due to: Acuity
Physical Exam
-
General: Negative Respiratory Distress or Appears in Distress
HEENT: Other (left lower mandibular swelling); Negative Oxygen
Respiratory: Clear to Auscultation
Cardiac: Regular Rhythm and S1/S2; Negative Murmur
Neuro: Negative Awake (somnolent)
[2023-09-11 15:00] VITALS: BP 119/53
[2023-09-11] MEDS: PLAVIX 75 MG PO (17:30)
[2023-09-11] MEDS: LIPITOR 80 MG PO (17:31)
[2023-09-11 23:00] VITALS: BP 109/59
[2023-09-12 07:00] VITALS: BP 102/56
[2023-09-12] MEDS: LOW STRENGTH ASPIRIN 81 MG PO (08:27)
[2023-09-12] MEDS: KCL 20 MEQ PO (08:28)
[2023-09-12] MEDS: LOTRIMIN 1% CREAM 1 APPLIC TOPICAL ×2 (08:28→20:05)
[2023-09-12] MEDS: ZESTRIL PO (08:28)
[2023-09-12] MEDS: DESENEX/MITRAZOL/ZEASORB 1 APPLIC TOPICAL ×2 (08:30→20:05)
[2023-09-12] MEDS: HEPARIN 5000 UNITS SC ×2 (08:30→20:05)
[2023-09-12] MEDS: MIRALAX PO (08:30)
[2023-09-12] MEDS: LASIX PO (08:30)
[2023-09-12] MEDS: NON-FORMULARY ITEM 750 MG PO (08:35)
--- NOTE | 2023-09-12 11:05 | CM ---
Addendum entered by Mary Gomez 09/12/23 13:09:
Daughter, Luana, reviewed facilities list and identified preference. Referrals sent via [facility]: #1 [facility]; #2 [facility]; #3 [facility], #4 [facility]
Original Note:
Plan: discharge to SNF when stable; family is agreeable
Daughter given printed list of facilities from medicare.gov website; instructed to identify 3-4 site preferences for CM before end of day today. CM contact information provided.
--- NOTE | 2023-09-12 11:35 | W.PN.HOSP.TC ---
Today's Communication/Plan
-
reg diet
snf rehab placement
Assessment / Plan
Assessment / Plan
09/07/[address]:
- There is facial swelling on the left, no discrete abscess in the soft tissues.
- There is a lucency in the #21 tooth in� the left mandible. Question tooth abscess causing the soft tissue swelling. Correlation with previous dental x-rays. The examination is severely limited due to the artifact from the dental amalgam.
- No change in a 3 cm soft tissue mass in the right side of the oropharynx. This has been felt to represent a benign lesion.
- No adenopathy.
- Osseous metastatic disease has been noted on prior imaging, patient with a history of prostate cancer and bone metastatic disease.

1. Left lower mandible odontogenic abscess involving tooth #21
Left facial cellulitis
-CT neck finding as above
-Evaluated by OMFS and no indication for surgery. will need f/u in office.
-Facial swelling has improved with residual swelling present. Continue on Unasyn for now.
-Patient not eating much, requesting regular diet. Changed.
2. Right hip pressure inj stage II - POA
- wound care consulted
3. Metastatic prostate cancer
- Multiple bony metastases noted on prior imaging.
- PET done 10/2021 with only FDG avid lesion noted in L3.� Other lesions sclerotic.
- Resume back on abiraterone home dose
4. Mild TME -resolved
- patient is somnolent. avoid sedative medication.
- No other clear issues
- VBG showing normal pco2. not getting sedative medication
- CT head normal
5. Hypokalemia
-replace PRN
CAD s/p LCX/RCA stenting
Chronic normocytic anemia
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
Coronary disease
Sev Aortic stenosis s/p TAVR
Essential HTN
HLD
DVT Prophylaxis: SQH
Code Status:� DNR per prior record
09/12 care plan discussed with daughter at bedside.
Anticipated Discharge: Within 24 hours
Subjective/Interval History
-
Date of Service: September 12, 2023
Patient awake and communicating
Feeling lethargic/tired
Not complaining excessive pain in the left jaw
Afebrile overnight
Objective Data
-
Vital Signs:
Vital Signs
Temp Pulse Resp BP Pulse Ox
98.2 F 64 17 102/56 97
09/12/23 07:00 09/12/23 07:00 09/12/23 07:00 09/12/23 08:30 09/12/23 09:33
I&O
09/11/23 09/12/23 09/13/23
06:59 06:59 06:59
Intake Total 840 / 840 1020 / 1020
Balance 840 / 840 1020 / 1020
Review of Systems
-
Respiratory: Reports No Symptoms
Cardiac: Reports No Symptoms
Abdomen/GI: Reports No Symptoms
Physical Exam
-
General: Negative Respiratory Distress or Appears in Distress
HEENT: Other (left lower mandibular swelling); Negative Oxygen
Respiratory: Clear to Auscultation
Cardiac: Regular Rhythm and S1/S2; Negative Murmur
Neuro: Awake, Alert and Oriented
[2023-09-12 15:00] VITALS: BP 121/61
[2023-09-12] MEDS: PLAVIX 75 MG PO (17:21)
[2023-09-12] MEDS: LIPITOR 80 MG PO (17:21)
[2023-09-12 23:15] VITALS: BP 129/64
[2023-09-13 07:00] VITALS: BP 143/68
[2023-09-13] MEDS: ZESTRIL 10 MG PO (08:43)
[2023-09-13] MEDS: LASIX PO ×2 (08:43→09:25)
[2023-09-13] MEDS: LOW STRENGTH ASPIRIN PO ×2 (08:43→09:25)
[2023-09-13] MEDS: HEPARIN 5000 UNITS SC ×2 (08:44→20:32)
[2023-09-13] MEDS: LOTRIMIN 1% CREAM 1 APPLIC TOPICAL ×2 (08:45→20:31)
[2023-09-13] MEDS: NON-FORMULARY ITEM PO ×2 (08:47→09:25)
[2023-09-13] MEDS: DESENEX/MITRAZOL/ZEASORB 1 APPLIC TOPICAL ×2 (08:47→20:31)
[2023-09-13] MEDS: KCL PO ×2 (08:49→08:56)
[2023-09-13] MEDS: MIRALAX PO (08:49)
[2023-09-13] MEDS: UNASYN IV ×3 (10:58→21:24)
[2023-09-13] MEDS: DUONEB 3 ML INH (11:07)
--- NOTE | 2023-09-13 13:17 | W.PN.HOSP.TC ---
Today's Communication/Plan
-
re-peat speech eval tomorrow
continue IVF, Unasyn
Assessment / Plan
Assessment / Plan
09/07/[address]:
- There is facial swelling on the left, no discrete abscess in the soft tissues.
- There is a lucency in the #21 tooth in� the left mandible. Question tooth abscess causing the soft tissue swelling. Correlation with previous dental x-rays. The examination is severely limited due to the artifact from the dental amalgam.
- No change in a 3 cm soft tissue mass in the right side of the oropharynx. This has been felt to represent a benign lesion.
- No adenopathy.
- Osseous metastatic disease has been noted on prior imaging, patient with a history of prostate cancer and bone metastatic disease.
Assessment:
Left lower mandible odontogenic abscess involving tooth #21
Left facial cellulitis
- CT neck summarized above
- OMFS evaluated; no role for surgical intervention
- continue Unasyn, day 02/06
- monitor facial swelling which has improved
Aspiration pneumonia
- continue Unasyn
- monitor for hypoxia
- nebs prn, add mucolytics
- speech therapy evaluating; strict NPO for now
Right hip pressure inj stage II - POA
- wound care consulted
Metastatic prostate cancer
- Multiple bony metastases noted on prior imaging.
- PET done 10/2021 with only FDG avid lesion noted in L3.� Other lesions sclerotic.
- Resume back on abiraterone home dose
Mild TME - resolved
- patient was somnolent. avoid sedative medication.
- No other clear issues
- VBG showing normal pco2. not getting sedative medication
- CT head normal
Hypokalemia
- replace PRN
CAD s/p LCX/RCA stenting
Chronic normocytic anemia
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
Coronary disease
Severe Aortic stenosis s/p TAVR
Essential HTN
HLD
DVT ppx: SC Heparin
Code: DNR per prior records
Anticipated Discharge: 24 - 48 hours
Subjective/Interval History
-
Date of Service: September 13, 2023
this morning with wheezing and concern for aspiration
yesterdays Xray showed RLL PNA
Objective Data
-
Vital Signs:
Vital Signs
Temp Pulse Resp BP Pulse Ox
99.7 F 76 18 143/68 95
09/13/23 07:00 09/13/23 11:13 09/13/23 11:13 09/13/23 07:00 09/13/23 11:13
I&O
09/12/23 09/13/23 09/14/23
06:59 06:59 06:59
Intake Total 1020 / 1020 840 / 840
Balance 1020 / 1020 840 / 840
Physical Exam
-
General: No Apparent Distress
HEENT: Normocephalic and Atraumatic
Respiratory: Negative Wheezes or Rales
Cardiac: Regular Rhythm and S1/S2
GI: Soft
Genito-urinary: No Costovertebral Tender
Musculoskeletal: No Edema
Neuro: AO x 3
Hematologic / Lymphatic: No Lymphadenopathy
Psych: Calm
Data Reviewed
-
Total Time Spent with Patient (in minutes): 47
Labs: Labs Reviewed by me
--- NOTE | 2023-09-13 13:56 | PTOTSP ---
SPEECH THERAPY SWALLOW EVALUATION:
Patient presents with clinical signs of oropharyngeal dysphagia, likely acute related to left lower mandible odontogenic abscess. Patient is at high risk for aspiration (given clear signs at bedside) and related complications given current
pneumonia. Patient is clearly unsafe for oral diet, hydration, or medication at this time. Recommend patient to be strict NPO with temporary alternate means for all nutrition, medication, and hydration. Patient would likely benefit from instrumental
assessment of swallowing when appropriate; however, given overt signs of aspiration with all textures at this time, recommending holding on VSE until patient demonstrating improvement at bedside. Speech therapy to follow, re-assess patient in 24
hours, provide diagnostic swallow therapy as appropriate, assess readiness for instrumental assessment of swallowing, and continue to provide education regarding aspiration risks and precautions.
RECOMMEND:
1) strict NPO with temporary alternate means for all nutrition, medication, and hydration
2) Speech therapy to follow, re-assess patient in 24 hours, provide diagnostic swallow therapy as appropriate, assess readiness for instrumental assessment of swallowing, and continue to provide education regarding aspiration risks and precautions
--- NOTE | 2023-09-13 14:14 | CM ---
Reviewed chart, [facility] can accept patient upon medical clearance. Family agreeable to transfer per discussion previous CM on case had with family. Auth will need to be obtained prior to transfer.
Plan: Case management will continue to follow and assist with discharge planning. [facility] can accept patient upon discharge.
[2023-09-13] MEDS: NSS with KCL 40 MEQ 1000 IV (14:24)
[2023-09-13 15:00] VITALS: BP 136/70
[2023-09-13 15:43] VITALS: BP 136/70
[2023-09-13] MEDS: LIPITOR PO (17:53)
[2023-09-13] MEDS: PLAVIX PO (17:53)
[2023-09-13] MEDS: TYLENOL/FEVERALL 650 MG RECTAL (21:24)
[2023-09-13] MEDS: TRANSDERM-SCOP 1 PATCH TRANSDERM (22:35)
--- NOTE | 2023-09-13 22:49 | PTCARENOTE ---
pt having a lot of oral secretions, suctioning PRN. notified PAM gomes and obtained an order for a scopolamine patch to help with secretions.
[2023-09-13 23:05] VITALS: BP 140/69
[2023-09-14] MEDS: UNASYN IV ×4 (03:21→21:36)
[2023-09-14 06:42] LABS: Hemoglobin 10.3 g/dL (13.0-18.0); Mean Corp Hgb Conc. 35.5 g/dL (33.0-37.0); Mean Corpuscular Hgb 32.7 pg (27.0-31.0); Mean Corpuscular Volume 92.1 fL (80.0-94.0); Platelet Count 204 10^3/uL (130-400); Red Blood Cell Count 3.15 10^6/uL (4.70-6.10); Red Cell Dist. Width 15.1 % (11.5-14.5); White Blood Cell Count 16.3 10^3/uL (4.8-10.8)
[2023-09-14 07:00] VITALS: BP 153/71
[2023-09-14 09:14] LABS: Blood Urea Nitrogen 9 mg/dl (9-20); Calcium 7.6 mg/dl (8.4-10.2); Carbon Dioxide 20 mmol/L (22-30); Chloride 112 mmol/L (98-107); Estimated Creatinine Clearance 62 ml/min; Glucose 66 mg/dl (70-99); Potassium 3.1 mmol/L (3.5-5.1); Sodium 141 mmol/L (135-145); eGFR > 60.00
[2023-09-14] MEDS: ZESTRIL PO (09:51)
[2023-09-14] MEDS: LOW STRENGTH ASPIRIN PO (09:51)
[2023-09-14] MEDS: MIRALAX PO (09:51)
[2023-09-14] MEDS: LOTRIMIN 1% CREAM TOPICAL (09:52)
[2023-09-14] MEDS: LASIX PO (09:52)
[2023-09-14] MEDS: KCL PO (09:52)
[2023-09-14] MEDS: DESENEX/MITRAZOL/ZEASORB TOPICAL (09:52)
[2023-09-14] MEDS: NON-FORMULARY ITEM PO (09:53)
[2023-09-14] MEDS: HEPARIN 5000 UNITS SC ×2 (10:01→20:09)
--- NOTE | 2023-09-14 10:40 | W.PN.HOSP.TC ---
Today's Communication/Plan
-
Wean O2
Unasyn
add decadron
request reevaluation by OMFS
IVF while strict NPO
Assessment / Plan
Assessment / Plan
09/07/[address]:
- There is facial swelling on the left, no discrete abscess in the soft tissues.
- There is a lucency in the #21 tooth in� the left mandible. Question tooth abscess causing the soft tissue swelling. Correlation with previous dental x-rays. The examination is severely limited due to the artifact from the dental amalgam.
- No change in a 3 cm soft tissue mass in the right side of the oropharynx. This has been felt to represent a benign lesion.
- No adenopathy.
- Osseous metastatic disease has been noted on prior imaging, patient with a history of prostate cancer and bone metastatic disease.
Assessment:
Left lower mandible odontogenic abscess involving tooth #21
Left facial cellulitis
- CT neck summarized above
- OMFS evaluated; no role for surgical intervention. Will ask for re-evaluation today
- continue Unasyn, day 03/08
- monitor facial swelling; will add Decadron to facilitate further improvement
Aspiration pneumonia
- continue Unasyn
- monitor for hypoxia
- nebs prn, add mucolytics
- speech therapy evaluating; strict NPO for now
Right hip pressure inj stage II - POA
- wound care following
Metastatic prostate cancer
- Multiple bony metastases noted on prior imaging.
- PET done 10/2021 with only FDG avid lesion noted in L3.� Other lesions sclerotic.
- Resume back on abiraterone home dose
Mild TME - resolved
- patient was somnolent. avoid sedative medication.
- No other clear issues
- VBG showing normal pco2. not getting sedative medication
- CT head normal
Hypokalemia
- replace PRN
CAD s/p LCX/RCA stenting
Chronic normocytic anemia
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
Coronary disease
Severe Aortic stenosis s/p TAVR
Essential HTN
HLD
DVT ppx: SC Heparin
Code: DNR per prior records
Anticipated Discharge: > 48 hours
Subjective/Interval History
-
Date of Service: September 14, 2023
remains SOB at times, scopolamine patch helping. Family states he is more alert today
remains strict NPO per speech
Objective Data
-
Labs:
Laboratory Results
09/14/23 09/14/23
06:22 08:23
WBC 16.3 H
Hgb 10.3 L
Hct 29.0 L
Plt Count 204
Sodium Cancelled 141
Potassium Cancelled 3.1 L
Chloride Cancelled 112 H
Carbon Dioxide Cancelled 20 L
BUN Cancelled 9
Creatinine Cancelled 0.9
Glucose Cancelled 66 L
Calcium Cancelled 7.6 L
Vital Signs:
Vital Signs
Temp Pulse Resp BP Pulse Ox
98.5 F 71 20 153/71 97
09/14/23 07:00 09/14/23 07:00 09/14/23 07:00 09/14/23 07:00 09/14/23 07:00
I&O
09/13/23 09/14/23 09/15/23
06:59 06:59 06:59
Intake Total 840 / 840
Balance 840 / 840
Physical Exam
-
General: No Apparent Distress
HEENT: Normocephalic
Respiratory: Rhonchi and Decreased Breath Sounds; Negative Wheezes
Cardiac: Regular Rhythm and S1/S2
Neuro: Awake and Alert
Psych: Calm and Apparent Dementia
Data Reviewed
-
Total Time Spent with Patient (in minutes): 45
Labs: Labs Reviewed by me
[2023-09-14] MEDS: DECADRON 4 MG IV ×2 (11:50→22:51)
[2023-09-14] MEDS: D5/0.45%NSS with KCL 40 MEQ 1000 IV (11:50)
[2023-09-14 13:16] LABS: COVID-19 Antigen Negative (Negative)
--- NOTE | 2023-09-14 14:56 | CON.ID ---
Consultation
-
Date/Time Consultation Requested: September 14, 2023 1421
Date/Time Consultation Performed: September 14, 2023 1500
Requesting Provider: Dr. Dominique Roy
Performing Provider: Dr. Sandrita Hansen
Reason for Consultation: Dental infection, cellulitis
Chief Complaint / Past History
Chief Complaint
Left jaw swelling and pain
History of Present Illness
History obtained from review of medical records, from his friend at bedside, and from the patient who has dementia. He is a 88-year-old male with CAD, metastatic prostate cancer, aortic stenosis status post TAVR who presented to the hospital on
September 07 with 2-day history of worsening left mandibular swelling and pain. From the front the friend said his jaw was very swollen, he could hardly open his mouth then. Admission white count was 16.9. CT of the neck showed lucency of tooth #21
without abscess, stable benign right oropharyngeal 3 cm mass. Patient was placed on Unasyn with improvement of the facial swelling. However yesterday patient noted to aspirate when nurse attempted to give him fluid. He was assessed by speech and
made him strict n.p.o. chest x-ray showed new right lower lobe infiltrate. Repeat CT of the neck today no dental abscess, the 3.5 cm soft tissue mass in the parapharyngeal soft tissue of the right hypopharynx associate with compression and
deviation of the hypopharynx to the left. Patient reports the left jaw pain and swelling has improved. His friend verified that swelling has improved. He does have difficulty swallowing. Per friend his mental status is better today.
Past History
Additional Past Medical History:
Dementia
CAD s/p stent
Aortic stenosis s/p TAVR
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
Hypertension
Allergy History:
doxycycline Allergy (Verified 09/07/23 11:34)
STOMACH ISSUES
Medications Reviewed: Yes
Current Antibiotics:
Unasyn (09/07 to 09/11)
Unasyn 09/13 to present
Metronidazole d1
Social History
Tobacco: Non-Smoker
Alcohol: None
Drug: None
Living: With Family (daughter)
Family History
Family History: Not Pertinent
Review of Systems
Review of Systems
General: Negative Fever or Chills
HEENT: Negative Headache
Respiratory: Cough; Negative Dyspnea
Gasteroenterology: Negative Nausea or Vomiting
Endocrine: Weakness
Neurological: Negative Headache
Vital Signs
Temp Pulse Resp BP Pulse Ox
98.5 F 71 20 153/71 97
09/14/23 07:00 09/14/23 07:00 09/14/23 07:00 09/14/23 07:00 09/14/23 07:00
Physical Exam
Physical Exam
Constitutional: Acutely Ill
Head: Other (left mandible mild induration, no erythema. No maxillary or frontal sinus tenderness.)
Eyes: No Conjunctival Hemorrhage and Sclera Anicteric
Oral: No Thrush and Other (Able to open mouth partially. )
Cardiovascular: Regular Rate and S1/S2
Pulmonary: Rhonchi and Coarse (right base)
Gastrointestinal: Soft, Non Tender and Non Distended
Genito-Urinary: Negative CVA Tenderness
Neurological: Other (drowsy)
Lab / Diagnostic Study Results
09/14/23 06:22
09/14/23 08:23
Abs Immat Gran (auto) 0.1 10^3/uL (0-0.05) H 09/08/23 05:40
Absolute Neuts (auto) 10.9 10^3/uL (1.4-6.5) H 09/08/23 05:40
Absolute Lymphs (auto) 0.4 10^3/uL (1.2-3.4) L 09/08/23 05:40
Absolute Monos (auto) 0.3 10^3/uL (0.1-0.6) 09/08/23 05:40
Absolute Basos (auto) 0.0 10^3/uL (0-0.2) 09/08/23 05:40
Immature Gran % 0.8 % (0-0.5) H 09/08/23 05:40
Neutrophils % 92.6 % (42.2-75.2) H 09/08/23 05:40
Lymphocytes % 3.6 % (20.5-51.1) L 09/08/23 05:40
Monocytes % 2.7 % (1.7-9.3) 09/08/23 05:40
Eosinophils % 0.0 % (0-6) 09/08/23 05:40
Basophils % 0.3 % (0-2) 09/08/23 05:40
Lactic Acid Cancelled 09/07/23 20:15
Microbiology Results
Micro:
09/07/23 16:47 Blood Culture - Final
Blood/Venous No Growth - Final Report
09/07/23 16:24 Blood Culture - Final
Blood/Venous No Growth - Final Report
09/07/23 CT neck: There is facial swelling on the left, no discrete abscess in the soft tissues. There is a lucency in the #21 tooth in� the left mandible. Question tooth abscess causing the soft tissue swelling. Correlation with previous dental
x-rays. The examination is severely limited due to the artifact from the dental amalgam. No change in a 3 cm soft tissue mass in the right side of the oropharynx. This has been felt to represent a benign lesion.
09/12/23 CXR: Findings suggesting mild right lower lobe pneumonia. New
09/14/23 CT neck: There is dental caries involving the left maxillary premolar with overlying soft tissue swelling but no focal fluid collection to suggest abscess There is a 3.5 cm stable partially calcified soft tissue mass in the� parapharyngeal
soft tissues of the right hypopharynx, posterior to the right submandibular gland, associated with compression and deviation of the hypopharynx to the left.
Assessment / Plan
# Left facial cellulitis from tooth #21 infection
- Appears to be improving
-Continue Unasyn.
# Acute RLL aspiration pneumonia
- ? source from deviated hypopharynx due to compression from benign 3.5 cm right parapharyngeal mass
-Continue with Unasyn
- No need to add metronidazole
-Strict aspiration precaution
- Suction oral secretions
#Recurrence of leukocytosis due to aspiration event.
- Control aspiration
-Follow wbc.
Care Review
Plan reviewed with: Physician (Dr. Roy)
[2023-09-14 15:00] VITALS: BP 147/73
--- NOTE | 2023-09-14 15:45 | CON.ORS ---
Consultation - Oral Surgery
Subjective
88 yo M with extensive comorbidities admitted for facial cellulits despite OMS recomending outpatient treatment. Re consulted for concern for facial swelling and facial abscess. Repeat CT neck with IV contrast again demonstrates no signficiant
findings, incorrectly noted chronic periapical radiolucency to be an abscess of the left maxillary premolar- this is a subacute chrnoic lesion of tooth 20 the left MANDIBULAR premolar. Pt is AAOx1, no complaints of pain, does not know why he is in
addison pain, cannot articular any maxillofacial complaints or concerns.
Medications / Allergies
Allergies
Allergy/AdvReac Type Severity Reaction Status Date / Time
doxycycline Allergy STOMACH Verified 09/07/23 11:34
ISSUES
Active Medications
Generic Name Dose Route Start Last Admin
Trade Name Freq PRN Reason Stop Dose Admin
Acetaminophen 650 mg 09/07/23 22:07
Acetaminophen 325 Mg Tablet PO 10/05/23 22:06
Q4HPRN PRN
mild pain/IVLLEGAS/temp> 100.4F
Acetaminophen 650 mg 09/13/23 20:48 09/13/23 21:24
Acetaminophen 650 Mg Rectal Suppository RECTAL 10/11/23 20:47 650 mg
Q4HPRN PRN Administration
mild pain/T >100.5
Albuterol/Ipratropium 3 ml 09/13/23 09:37 09/13/23 11:07
Ipratropium 0.5/Albuterol 3 Mg (3 Ml Ampul) INH 10/11/23 09:36 3 ml
R Q4HPRN PRN Administration
sob/wheezing
Protocol
Aspirin 81 mg 09/08/23 08:00 09/14/23 09:51
Aspirin 81 Mg Chewable Tablet PO 10/06/23 07:59 Not Given
DAILY JANINE
Atorvastatin Calcium 80 mg 09/08/23 18:00 09/13/23 17:53
Atorvastatin (Lipitor) 80 Mg Tablet PO 10/06/23 17:59 Not Given
QPM JANINE
Clopidogrel Bisulfate 75 mg 09/08/23 18:00 09/13/23 17:53
Clopidogrel 75 Mg Tablet PO 10/06/23 17:59 Not Given
QPM JANINE
Clotrimazole 0 applic 09/08/23 20:00 09/14/23 09:52
Clotrimazole 1% (Cream) 30 Gram Tube TOPICAL 10/06/23 19:59 Not Given
BID JANINE
Dexamethasone Sodium Phosphate 4 mg 09/14/23 11:00 09/14/23 11:50
Dexamethasone 4 Mg/Ml 1 Ml Vial IV 10/12/23 10:59 4 mg
Q12H JANINE Administration
Furosemide 40 mg 09/08/23 08:00 09/14/23 09:52
Furosemide 40 Mg Tablet PO 10/06/23 07:59 Not Given
DAILY JANINE
Heparin Sodium 5,000 units 09/08/23 08:00 09/14/23 10:01
Heparin 5,000 Units/Ml 1 Ml Vial SC 10/06/23 07:59 5,000 units
Q12 JANINE Administration
Ampicillin Sodium/Sulbactam 120 mls @ 240 mls/hr 09/13/23 10:00 09/14/23 10:12
Sodium 3 gm/ Sodium Chloride IV 120 mls
Q6H JANINE Administration
Potassium Chloride/Dextrose/Sod Cl 40 meq in 1,000 mls @ 70 mls/hr 09/14/23 12:00 09/14/23 11:50
D5/0.45%Nss With Kcl 40 Meq IV 1,000 mls
.[id number] JANINE Administration
Lisinopril 10 mg 09/08/23 08:00 09/14/23 09:51
Lisinopril 10 Mg Tablet PO 10/06/23 07:59 Not Given
DAILY JANINE
Miconazole Nitrate 0 applic 09/08/23 20:00 09/14/23 09:52
Miconazole Powder Bottle TOPICAL 10/06/23 19:59 Not Given
BID JANINE
*Pt Own Hazardous 0 mg 09/08/23 11:15 09/14/23 09:53
Med* Abiraterone PO 10/06/23 11:14 Not Given
250mg DAILY JANINE
Polyethylene Glycol 8.5 grams 09/08/23 08:00 09/14/23 09:51
Polyethylene Glycol Powder 17 Grams Packet PO 10/06/23 07:59 Not Given
DAILY JANINE
Potassium Chloride 20 meq 09/08/23 08:00 09/14/23 09:52
Potassium Chloride 20 Meq Extended Release Tablet PO 10/06/23 07:59 Not Given
DAILY JANINE
Scopolamine HBr 1 patch 09/13/23 23:00 09/13/23 22:35
Scopolamine Patch TRANSDERM 10/11/23 22:59 1 patch
Q72H JANINE Administration
Sodium Chloride 0 flush 09/07/23 23:00 09/08/23 17:54
Sodium Chloride 0.9% (Flush) Syringe IV 10/05/23 22:59 1 flush
PER PROTOCOL JANINE Administration
Vital Signs
Temp Pulse Resp BP Pulse Ox
36.9 C 71 20 153/71 97
09/14/23 07:00 09/14/23 07:00 09/14/23 07:00 09/14/23 07:00 09/14/23 07:00
Physical Exam
General: Other (AAOx0)
Respiratory: Rhonchi and Other (significant upper airway sounds)
Extra-oral Exam: Other (Mandibular border palpable in its entirety, no swelling, no erythema, no tenderness)
Intra-oral Exam: Floor of Mouth Soft Without Elevation and Other (Thick secretions, FOM soft, not elevated, no induation, no flucutance, no tenderness to palpation)
CT Results
Chronic islated lesion of mandibular premolar 2/2 caries, no abscess formation, no fluid collection, no airway deviation,
Assessment / Plan
88 yo M reconsulted with concern for facial abscess of odontogenic origin, no abscess formation or significant finding on repeat imaging, no odontogenic source for patients current condition
- recommend routine outpatient oral surgery/dental follow up
- no acute surgical intervention
- OMFS to sign off
Data Reviewed
Diagnostic Imaging: Image personally visualized and interpreted, Report Reviewed by me, Discussed with Nurse and Other
CT Scan: Image personally visualized and interpreted
Labs: Labs Reviewed by me
[2023-09-14] MEDS: LIPITOR PO (18:18)
[2023-09-14] MEDS: PLAVIX PO (18:18)
[2023-09-14] MEDS: DESENEX/MITRAZOL/ZEASORB 1 APPLIC TOPICAL (20:09)
[2023-09-14] MEDS: LOTRIMIN 1% CREAM 1 APPLIC TOPICAL (20:11)
[2023-09-14] MEDS: DUONEB 3 ML INH (20:21)
[2023-09-14 23:00] VITALS: BP 127/72
[2023-09-15] MEDS: D5/0.45%NSS with KCL 40 MEQ 1000 IV (04:23)
[2023-09-15] MEDS: UNASYN IV ×4 (04:23→22:15)
[2023-09-15 06:23] LABS: Hematocrit 29.6 % (39.0-52.0); Hemoglobin 10.3 g/dL (13.0-18.0); Mean Corp Hgb Conc. 34.8 g/dL (33.0-37.0); Mean Corpuscular Hgb 32.8 pg (27.0-31.0); Mean Corpuscular Volume 94.3 fL (80.0-94.0); Mean Platelet Volume 10.4 fL (7.4-10.4); Platelet Count 224 10^3/uL (130-400); Red Blood Cell Count 3.14 10^6/uL (4.70-6.10); Red Cell Dist. Width 14.9 % (11.5-14.5); White Blood Cell Count 16.9 10^3/uL (4.8-10.8)
[2023-09-15 07:00] VITALS: BP 124/71
[2023-09-15 07:24] LABS: Blood Urea Nitrogen 10 mg/dl (9-20); Calcium 7.4 mg/dl (8.4-10.2); Carbon Dioxide 19 mmol/L (22-30); Chloride 116 mmol/L (98-107); Estimated Creatinine Clearance 70 ml/min; Glucose 153 mg/dl (70-99); Potassium 4.1 mmol/L (3.5-5.1); Sodium 140 mmol/L (135-145); eGFR > 60.00
--- NOTE | 2023-09-15 08:02 | CON.MD ---
Consultation - Medical
-
Parapharyngeal mass, aspiration
88 yo c dementia, CAD, metatstatic prostate CA, admitted c jaw swelling, dx'ed with dental infection. This has improved with antibx and will be followed up as outpt
Pt developed increased WBC and was also diagnosed with aspiration pneumonia
CT shows a 3 cm partially calcified mass in R parapharyngeal area.
On review, same mass seen on CT in 2018 with no change, and PET scan from 2021 shows no increased activity in this mass
PE - Pt is responsive but confused
OC - dry mucosa and secretions
Flex endoscopy - there is some narrowing of the R hypopharynx likely from this mass
Both vocal cords are mobile
There is diminished gag and cough reflex, with thick secretions in the hypopharynx
A/P Parapharyngeal mass
Exact etiology unclear, would suspect enlarged lymph node, not with suspicious metabolic activity on PET scan and no change in 5 years
Aspiration - pt likely aspirating from a combination of decreased mental awareness, weakened cough and gag reflexes with weakened neuromuscular activity and swallowing function
Do not feel this mass is responsible for aspiration, and would not offer specific treatment or recommend biopsy
Encourage IV hydration as pt does appear somewhat dry, and would work with speech therapy if more awake and alert to see if he can tolerate any modified diet
Contact again if needed
[2023-09-15] MEDS: DESENEX/MITRAZOL/ZEASORB 1 APPLIC TOPICAL ×2 (08:32→22:13)
[2023-09-15] MEDS: LOTRIMIN 1% CREAM 1 APPLIC TOPICAL ×2 (08:33→22:15)
[2023-09-15] MEDS: HEPARIN 5000 UNITS SC ×2 (08:33→22:14)
--- NOTE | 2023-09-15 09:30 | PTOTSP ---
Speech Language Pathology
Pt seen for dysphagia tx. Awake and conversive with confused conversation. Appeared to be managing secretions at rest. Oral care completed with use of suction toothbrush. P.O. trials of puree, ice chips, and thin liquids provided. No oral
difficulty noted with limited trials provided. No overt signs of aspiration.
Of note, pt with R gaze preference, decreased facial movement on L, and lingual deviation to the L. Question neurological etiology of dysphagia given previous secretion mismanagement and fairly negative workup so far. Discussed with MD who ordered
repeat HCT.
Recommend:
(1) VSE
(2) NPO pending VSE
(3) Will determine need for Aspiration Risk Hydration Protocol (ARHP) after VSE
(4) Oral care 4x/day with suctioning as needed
(5) TRUCKER to continue to follow
[2023-09-15 10:18] VITALS: BP 163/81; PULSE 67; O2SAT 99
[2023-09-15 10:19] VITALS: BP 163/81; PULSE 67
--- NOTE | 2023-09-15 10:27 | W.PN.HOSP.TC ---
Today's Communication/Plan
-
repeat CT head and VSE
continue medical treatment
Assessment / Plan
Assessment / Plan
09/07/[address]:
- There is facial swelling on the left, no discrete abscess in the soft tissues.
- There is a lucency in the #21 tooth in� the left mandible. Question tooth abscess causing the soft tissue swelling. Correlation with previous dental x-rays. The examination is severely limited due to the artifact from the dental amalgam.
- No change in a 3 cm soft tissue mass in the right side of the oropharynx. This has been felt to represent a benign lesion.
- No adenopathy.
- Osseous metastatic disease has been noted on prior imaging, patient with a history of prostate cancer and bone metastatic disease.
Assessment:
Left lower mandible odontogenic abscess involving tooth #21
Left facial cellulitis
- CT neck summarized above; repeat CT neck without abscess
- OMFS evaluations appreciated, no surgical intervention
- continue Unasyn, day 8 per ID
- monitor facial swelling; continue Decadron 4mg q12h, wean in AM
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
- per ENT, no concern that mass is causing aspiration and would not offer specific treatment or recommend biopsy
Aspiration pneumonia
- continue Unasyn
- monitor for hypoxia
- nebs prn, add mucolytics
- speech therapy evaluating; strict NPO for now pending VSE
Facial deviation likely from L facial cellulitis
- repeat CT head today to ensure no CVA
Right hip pressure inj stage II - POA
- wound care following
Metastatic prostate cancer
- Multiple bony metastases noted on prior imaging.
- PET done 10/2021 with only FDG avid lesion noted in L3.� Other lesions sclerotic.
- Resume back on abiraterone home dose
Mild TME - resolved
- patient was somnolent. avoid sedative medication.
- No other clear issues
- VBG showing normal pco2. not getting sedative medication
- CT head normal
Hypokalemia
- replace PRN
CAD s/p LCX/RCA stenting
Chronic normocytic anemia
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
Coronary disease
Severe Aortic stenosis s/p TAVR
Essential HTN
HLD
DVT ppx: SC Heparin
Code: DNR per prior records
Anticipated Discharge: > 48 hours
Subjective/Interval History
-
Date of Service: September 15, 2023
more alert today, better secretion control
no focal deficits
Objective Data
-
Labs:
Laboratory Results
09/15/23
06:02
WBC 16.9 H
Hgb 10.3 L
Hct 29.6 L
Plt Count 224
Sodium 140
Potassium 4.1 D
Chloride 116 H
Carbon Dioxide 19 L
BUN 10
Creatinine 0.8
Glucose 153 H
Calcium 7.4 L
Vital Signs:
Vital Signs
Temp Pulse Resp BP Pulse Ox
99.0 F 62 18 124/71 98
09/15/23 07:00 09/15/23 07:00 09/15/23 07:00 09/15/23 07:00 09/15/23 07:00
Physical Exam
-
General: No Apparent Distress
HEENT: Normocephalic and Atraumatic
Respiratory: Negative Wheezes
Cardiac: Regular Rhythm and S1/S2
GI: Soft
Genito-urinary: No Costovertebral Tender
Neuro: AO x 3
Psych: Calm
Data Reviewed
-
Total Time Spent with Patient (in minutes): 45
Labs: Labs Reviewed by me
--- NOTE | 2023-09-15 10:40 | PTOTSP ---
Speech Language Pathology
VIDEOFLUOROSCOPIC SWALLOWING EXAMINATION (VSE) completed. Overall, pt with mod oral and mild-mod pharyngeal dysphagia. Penetration noted with no aspiration identified, but pt remains at risk for aspiration.
Recommend:
(1) Initiate IDDSI Level 5 Solids (Minced/Moist) and thin liquids
(2) Aspiration precautions: sit upright, single cup sips (no straws), slow rate, cued cough intermittently throughout meals
(3) Meds whole in puree
(4) [employer] BL[employer] to continue to follow
[2023-09-15] MEDS: DECADRON 4 MG IV ×2 (11:37→22:15)
--- NOTE | 2023-09-15 14:20 | CM ---
CM following re: discharge planning.
Reviewed pt's chart, met with pt and pt's spouse at bedside.
Pt's spouse has been notified that [facility] offered a bed and pt's spouse stated her preferred SNF is [facility]. CM contacted [facility] aircraft maintenance director and she confirmed that a referral still under review and a bed probably will be offered to the pt.
D/c plan: [facility] SNF. Awaiting for final confirmation. Alternative: [facility]F.
CM will follow with discharge plan updates as hospitalization progresses
[2023-09-15 15:00] VITALS: BP 143/67
--- NOTE | 2023-09-15 15:49 | W.PN.ID1 ---
Date of Service
Date of Service: September 15, 2023
Today's Communication
Continue Unasyn for now.
Assessment / Plan
# Left facial cellulitis from tooth #21 infection
- improving
-Continue Unasyn.
# Acute RLL aspiration pneumonia
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
- VSE mod oral and mild-mod pharyngeal dysphagia, no aspirated noted but remains at high risk.
-Continue with Unasyn
- aspiration precaution
#Recurrence of leukocytosis due to aspiration event.
- Control aspiration precaution
-Follow wbc.
#Additional Past Medical History:
Dementia
CAD s/p stent
Aortic stenosis s/p TAVR
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
Hypertension
Chief Complaint
-: Other (aspiration, dental infection)
Subjective / Review of Systems
Per daughter, patient is confused today.
He is more alert.
Vital Signs / Physical Exam
Vital Signs
Vital Signs
Temp Pulse Resp BP Pulse Ox
99.0 F 62 18 124/71 98
09/15/23 07:00 09/15/23 07:00 09/15/23 07:00 09/15/23 07:00 09/15/23 07:00
Physical Exam
Constitutional: Comfortable
Oropharyngeal: Other (left mandible mild induration; no trismus)
Pulmonary: Coarse (bases)
Gastrointestinal: Soft, Non Tender and Non Distended
Neurological: Awake and Alert
Objective Data
Lab Data
Lab Results
09/15/23 06:02
09/15/23 06:02
Estimated Creat Clear 70 ml/min 09/15/23 06:02
Lactic Acid Cancelled 09/07/23 20:15
Total Bilirubin 1.6 mg/dl (0.2-1.3) H 09/07/23 11:53
AST 36 U/L (17-59) 09/07/23 11:53
ALT 18 U/L (0-50) 09/07/23 11:53
Alkaline Phosphatase 104 U/L (38-126) 09/07/23 11:53
Most recent labs reviewed.
Micro Results:
09/07/23 16:47 Blood Culture - Final
Blood/Venous No Growth - Final Report
09/07/23 16:24 Blood Culture - Final
Blood/Venous No Growth - Final Report
09/07/23 CT neck: There is facial swelling on the left, no discrete abscess in the soft tissues. There is a lucency in the #21 tooth in� the left mandible. Question tooth abscess causing the soft tissue swelling. Correlation with previous dental
x-rays. The examination is severely limited due to the artifact from the dental amalgam. No change in a 3 cm soft tissue mass in the right side of the oropharynx. This has been felt to represent a benign lesion.
09/12/23 CXR: Findings suggesting mild right lower lobe pneumonia. New
09/14/23 CT neck: There is dental caries involving the left maxillary premolar with overlying soft tissue swelling but no focal fluid collection to suggest abscess There is a 3.5 cm stable partially calcified soft tissue mass in the� parapharyngeal
soft tissues of the right hypopharynx, posterior to the right submandibular gland, associated with compression and deviation of the hypopharynx to the left.
[2023-09-15] MEDS: PLAVIX PO (17:35)
[2023-09-15 23:00] VITALS: BP 162/76
[2023-09-16] MEDS: UNASYN IV ×4 (04:24→21:10)
[2023-09-16 06:30] LABS: Hematocrit 30.5 % (39.0-52.0); Hemoglobin 10.6 g/dL (13.0-18.0); Mean Corp Hgb Conc. 34.8 g/dL (33.0-37.0); Mean Corpuscular Hgb 33.1 pg (27.0-31.0); Mean Corpuscular Volume 95.3 fL (80.0-94.0); Mean Platelet Volume 11.1 fL (7.4-10.4); Platelet Count 236 10^3/uL (130-400); Red Cell Dist. Width 14.7 % (11.5-14.5); White Blood Cell Count 17.5 10^3/uL (4.8-10.8)
[2023-09-16 07:02] LABS: Blood Urea Nitrogen 11 mg/dl (9-20); Calcium 7.6 mg/dl (8.4-10.2); Carbon Dioxide 20 mmol/L (22-30); Chloride 116 mmol/L (98-107); Estimated Creatinine Clearance 70 ml/min; Glucose 130 mg/dl (70-99); Sodium 140 mmol/L (135-145); eGFR > 60.00
[2023-09-16] MEDS: HEPARIN 5000 UNITS SC ×2 (08:13→21:09)
[2023-09-16] MEDS: KCL 20 MEQ PO (08:14)
[2023-09-16] MEDS: LASIX 40 MG PO (08:17)
[2023-09-16] MEDS: LOW STRENGTH ASPIRIN 81 MG PO (08:17)
[2023-09-16] MEDS: ZESTRIL 10 MG PO (08:20)
[2023-09-16] MEDS: DESENEX/MITRAZOL/ZEASORB 1 APPLIC TOPICAL ×2 (08:25→21:10)
[2023-09-16 08:34] VITALS: BP 156/72
[2023-09-16] MEDS: LOTRIMIN 1% CREAM 1 APPLIC TOPICAL ×2 (08:36→21:11)
--- NOTE | 2023-09-16 11:11 | W.PN.HOSP.TC ---
Today's Communication/Plan
-
sit patient up encourage oral intake
IVF bag
psych eval for hallucinations
Assessment / Plan
Assessment / Plan
09/07/[address]:
- There is facial swelling on the left, no discrete abscess in the soft tissues.
- There is a lucency in the #21 tooth in� the left mandible. Question tooth abscess causing the soft tissue swelling. Correlation with previous dental x-rays. The examination is severely limited due to the artifact from the dental amalgam.
- No change in a 3 cm soft tissue mass in the right side of the oropharynx. This has been felt to represent a benign lesion.
- No adenopathy.
- Osseous metastatic disease has been noted on prior imaging, patient with a history of prostate cancer and bone metastatic disease.
Assessment:
Left lower mandible odontogenic abscess involving tooth #21
Left facial cellulitis
- CT neck summarized above; repeat CT neck without abscess
- OMFS evaluations appreciated, no surgical intervention
- continue Unasyn, day 9/ per ID
- monitor facial swelling; DC steroids
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
- per ENT, no concern that mass is causing aspiration and would not offer specific treatment or recommend biopsy
Aspiration pneumonia
- continue Unasyn
- monitor for hypoxia
- nebs prn, add mucolytics
Dysphagia/aspiration
- speech therapy evaluating; continue IDDSI level 5
- patient currently not eating, will hang IVF
- would encouarge oral intake, HOB 30 degrees to facilitate oral intake. briefly broached PEG tube with family if no improvement in intake
Facial deviation likely from L facial cellulitis
- no evidence of CVA x 2 CT heads
Right hip pressure inj stage II - POA
- wound care following
Metastatic prostate cancer
- Multiple bony metastases noted on prior imaging.
- PET done 10/2021 with only FDG avid lesion noted in L3.� Other lesions sclerotic.
- Resume back on abiraterone home dose
Mild TME - waxing and waning
- patient intermittently somnolent. avoid sedative medication.
- No other clear issues
- VBG showing normal pco2. not getting sedative medication
- CT head normal x 2
- check UA
- with hallucinations, will consult psych
Hypokalemia
- replace PRN
CAD s/p LCX/RCA stenting
Chronic normocytic anemia
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
Coronary disease
Severe Aortic stenosis s/p TAVR
Essential HTN
HLD
DVT ppx: SC Heparin
Code: DNR per prior records
Anticipated Discharge: 24 - 48 hours
Subjective/Interval History
-
Date of Service: September 16, 2023
patient with minimal oral intake, hallucinating this morning
family at bedside, patient refusing to eat
no fevers/chills, no other issues overnight
Objective Data
-
Labs:
Laboratory Results
09/16/23
05:47
WBC 17.5 H
Hgb 10.6 L
Hct 30.5 L
Plt Count 236
Sodium 140
Potassium 4.0
Chloride 116 H
Carbon Dioxide 20 L
BUN 11
Creatinine 0.8
Glucose 130 H
Calcium 7.6 L
Vital Signs:
Vital Signs
Temp Pulse Resp BP Pulse Ox
98.3 F 55 17 156/72 98
09/16/23 08:34 09/16/23 08:34 09/16/23 08:34 09/16/23 08:34 09/16/23 08:34
I&O
09/15/23 09/16/23 09/17/23
06:59 06:59 06:59
Intake Total 240 / 240
Balance 240 / 240
Physical Exam
-
General: Appears Chronically Ill
HEENT: Normocephalic
Respiratory: Negative Wheezes
Cardiac: Regular Rhythm and S1/S2
GI: Soft
Musculoskeletal: No Edema
Neuro: Awake
Psych: Confused and Apparent Dementia
Data Reviewed
-
Total Time Spent with Patient (in minutes): 45
Labs: Labs Reviewed by me
[2023-09-16] MEDS: DECADRON 4 MG IV (11:14)
[2023-09-16] MEDS: D5/0.45%NACL 1000 IV (11:55)
[2023-09-16 13:13] VITALS: BP 133/55; PULSE 60
--- NOTE | 2023-09-16 13:20 | CON.MD ---
Consultation - Medical
-
patient seen chart reviewed. daughter at bedside provided hx as patient is a poor historian and was not at all a participant in this interview. Despite simple questions asked of him he remained unresponsive although awake and lying in hospital bed.
patient has hx visual hallucinations . 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 at times he has been frightened by what he has been seeing. at the present time he offered no complaints of seeing
things and appeared quite calm. the patient has no psych history at all. he to d's knowledge does not have chronic visual illness but he has had cataract surgery. he is due for eye exam this coming october. the patient is here bc of facial swelling
presumed to be secondary to dental abscess. he has seen oral surgery who recommend iv then po antibiotics w out pt followup. patient was described earlier in this stay as being delirious and suffering tme
past psych hx none
medical see above re current reason for dh admit. hx metastatic prostate ca. hx cva, hld htn aortic stenosis w tavr procedure in the past gait abnormality cad dementia
fh non contributory
substance abuse denied
social d resides w him. 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
mse unable to assess patient did not answer questions but was lying quietly in bed
dx likely continued tme superimposed secondary to medical illness superimposed on dementia
recommendations patient has no psych hx .i doubt these visual hallucinations represent psychosis. they may be related to delirium, cva, aurea marlo syndrome (we do not have documentation of visual dx but he has not seen optho in about a year)
none of which really respond to antipsychotics which would likely cause side effects. since he is at this point cooperative and not clearly in distress from this would hold off on treatment and observe. will check in w him tomorrow.
--- NOTE | 2023-09-16 13:46 | W.PN.ID1 ---
Date of Service
Date of Service: September 16, 2023
Today's Communication
When safe to take po med, can transition to Augmentin 875mg po bid through 09/21/23
Assessment / Plan
# Left facial cellulitis from tooth #21 infection
- Resolving on Unasyn (d9)
-When safe to take po, can transition to Augmentin 875mg po bid through 09/21/23
# Acute RLL aspiration pneumonia (onset 09/12)
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
Steroid started 09/14
- VSE mod oral and mild-mod pharyngeal dysphagia, no aspirated noted but remains at high risk.
-Continue with Unasyn for now.
When safe to take po, can transition to Augmentin 875mg po bid through 09/21/23
-Aspiration precaution.
# Leukocytosis - most likely steroid effect.
# Confusion
-Psych evaluating
#Additional Past Medical History:
Dementia
CAD s/p stent
Aortic stenosis s/p TAVR
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
Hypertension
Chief Complaint
-: Other (aspiration, dental infection)
Subjective / Review of Systems
Per daughter, pt is still confused. 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
Vital Signs / Physical Exam
Vital Signs
Vital Signs
Temp Pulse Resp BP Pulse Ox
98.3 F 55 17 156/72 98
09/16/23 08:34 09/16/23 08:34 09/16/23 08:34 09/16/23 08:34 09/16/23 08:34
Physical Exam
Constitutional: Comfortable
Oropharyngeal: Other (left mandible minimal induration)
Pulmonary: Clear (anteriorly)
Gastrointestinal: Soft, Non Tender and Non Distended
Neurological: Other (drowsy)
Objective Data
Lab Data
Lab Results
09/16/23 05:47
09/16/23 05:47
Estimated Creat Clear 70 ml/min 09/16/23 05:47
Lactic Acid Cancelled 09/07/23 20:15
Total Bilirubin 1.6 mg/dl (0.2-1.3) H 09/07/23 11:53
AST 36 U/L (17-59) 09/07/23 11:53
ALT 18 U/L (0-50) 09/07/23 11:53
Alkaline Phosphatase 104 U/L (38-126) 09/07/23 11:53
Most recent labs reviewed.
Micro Results:
09/07/23 16:47 Blood Culture - Final
Blood/Venous No Growth - Final Report
09/07/23 16:24 Blood Culture - Final
Blood/Venous No Growth - Final Report
09/07/23 CT neck: There is facial swelling on the left, no discrete abscess in the soft tissues. There is a lucency in the #21 tooth in� the left mandible. Question tooth abscess causing the soft tissue swelling. Correlation with previous dental
x-rays. The examination is severely limited due to the artifact from the dental amalgam. No change in a 3 cm soft tissue mass in the right side of the oropharynx. This has been felt to represent a benign lesion.
09/12/23 CXR: Findings suggesting mild right lower lobe pneumonia. New
09/14/23 CT neck: There is dental caries involving the left maxillary premolar with overlying soft tissue swelling but no focal fluid collection to suggest abscess There is a 3.5 cm stable partially calcified soft tissue mass in the� parapharyngeal
soft tissues of the right hypopharynx, posterior to the right submandibular gland, associated with compression and deviation of the hypopharynx to the left.
--- NOTE | 2023-09-16 14:26 | CM ---
CM following re: discharge planning.
Reviewed pt's chart, met with pt and pt's daughter Luana at bedside.
CM confirmed with [facility] liaison they they will accept the pt for a short term rehab when pt is medically stable. Pt's daughter is aware, expressed her appreciation with discharge plan progress and she stated she will bring her father home after
the completion of a short term rehab.
D/c plan: [facility] when pt is medically stable
CM will follow with discharge plan updates as hospitalization progresses
--- NOTE | 2023-09-16 15:18 | WOUNDNOTE ---
[facility] RN note: Patient's R hip wound healing. Coccyx red ecchymotic with perianal MASD. Miconazole powder applied to sergo skin. Silicone border foam applied to sacral/coccyx and R hip. Patient turned to L semi side lying position with help from RN
Tavia. TruVue lite boots on le's. Tavia confirmed skin on patient's heels are intact. Air chair cushion given. More air applied in Waffle air overlay. Will follow as needed.
[2023-09-16 15:55] VITALS: BP 118/54
[2023-09-16] MEDS: PLAVIX 75 MG PO (18:03)
[2023-09-16] MEDS: LIPITOR 80 MG PO (18:07)
[2023-09-16] MEDS: TRANSDERM-SCOP 1 PATCH TRANSDERM (22:54)
[2023-09-16 23:05] VITALS: BP 158/71
[2023-09-17] MEDS: UNASYN IV ×4 (04:57→22:35)
[2023-09-17 06:35] LABS: % Basophils 0.3 % (0-2); % Immature Granulocytes 5.8 % (0-0.5); % Lymphocytes 6.9 % (20.5-51.1); % Monocytes 6.5 % (1.7-9.3); % Neutrophils 80.5 % (42.2-75.2); Absolute Basophils 0.1 10^3/uL (0-0.2); Absolute Immature Granulocytes 1.2 10^3/uL (0-0.05); Absolute Lymphocytes 1.4 10^3/uL (1.2-3.4); Absolute Monocytes 1.3 10^3/uL (0.1-0.6); Absolute Neutrophils 16.3 10^3/uL (1.4-6.5); Hematocrit 29.8 % (39.0-52.0); Hemoglobin 10.4 g/dL (13.0-18.0); Mean Corp Hgb Conc. 34.9 g/dL (33.0-37.0); Mean Corpuscular Hgb 32.7 pg (27.0-31.0); Mean Corpuscular Volume 93.7 fL (80.0-94.0); Mean Platelet Volume 10.6 fL (7.4-10.4); Nucleated Red Blood Cells % 0.2 % (-); Platelet Count 221 10^3/uL (130-400); Red Blood Cell Count 3.18 10^6/uL (4.70-6.10); White Blood Cell Count 20.2 10^3/uL (4.8-10.8)
[2023-09-17] MEDS: D5/0.45%NACL 1000 IV (06:42)
[2023-09-17 07:15] LABS: Blood Urea Nitrogen 11 mg/dl (9-20); Calcium 7.8 mg/dl (8.4-10.2); Carbon Dioxide 23 mmol/L (22-30); Chloride 114 mmol/L (98-107); Estimated Creatinine Clearance 70 ml/min; Glucose 96 mg/dl (70-99); Potassium 3.5 mmol/L (3.5-5.1); Sodium 140 mmol/L (135-145); eGFR > 60.00
[2023-09-17 07:30] VITALS: BP 175/93
[2023-09-17 07:42] LABS: TSH Reflex To Free T4 2.85 uIU/ml (0.47-4.68)
[2023-09-17] MEDS: KLOR-CON 20 MEQ PO (08:10)
[2023-09-17] MEDS: HEPARIN 5000 UNITS SC ×2 (08:10→20:49)
[2023-09-17] MEDS: ZESTRIL 10 MG PO (08:10)
[2023-09-17] MEDS: LASIX 40 MG PO (08:10)
[2023-09-17] MEDS: LOW STRENGTH ASPIRIN 81 MG PO (08:10)
[2023-09-17] MEDS: LOTRIMIN 1% CREAM 1 APPLIC TOPICAL ×2 (08:11→20:50)
[2023-09-17] MEDS: DESENEX/MITRAZOL/ZEASORB 1 APPLIC TOPICAL ×2 (08:11→20:49)
[2023-09-17 08:17] LABS: Folate 9.5 ng/ml (2.76-20); Vitamin B12 437 pg/ml (239-931)
--- NOTE | 2023-09-17 10:04 | W.PN.HOSP.TC ---
Today's Communication/Plan
-
check UA
continue IVF
prn Hydralazine
will discuss GOC with family
Assessment / Plan
Assessment / Plan
09/07/[address]:
- There is facial swelling on the left, no discrete abscess in the soft tissues.
- There is a lucency in the #21 tooth in� the left mandible. Question tooth abscess causing the soft tissue swelling. Correlation with previous dental x-rays. The examination is severely limited due to the artifact from the dental amalgam.
- No change in a 3 cm soft tissue mass in the right side of the oropharynx. This has been felt to represent a benign lesion.
- No adenopathy.
- Osseous metastatic disease has been noted on prior imaging, patient with a history of prostate cancer and bone metastatic disease.
Assessment:
Left lower mandible odontogenic abscess involving tooth #21
Left facial cellulitis
- initial CT neck summarized above; repeat CT neck without abscess
- OMFS evaluations appreciated, no surgical intervention
- continue Unasyn, day 06/12 per ID
- monitor facial swelling; completed brief steroid course to help improve facial swelling
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
- per ENT, no concern that mass is causing aspiration and would not offer specific treatment or recommend biopsy
Aspiration pneumonia
- continue Unasyn, day 06/12 per ID
- monitor for hypoxia
- nebs prn, add mucolytics
Dysphagia/aspiration
- speech therapy evaluating; continue IDDSI level 5 althought patient not eating much
- continue IVF
- would encourage oral intake, HOB 30 degrees to facilitate oral intake. briefly broached PEG tube with family if no improvement in intake but also explained PEG would not prevent aspiration and patient with dementia high risk for PEG complications.
Facial deviation likely from L facial cellulitis
- no evidence of CVA x 2 CT heads
Right hip pressure inj stage II - POA
- wound care following
Metastatic prostate cancer
- Multiple bony metastases noted on prior imaging.
- PET done 10/2021 with only FDG avid lesion noted in L3.� Other lesions sclerotic.
- Resume back on abiraterone home dose
Mild TME - waxing and waning
Suspected underlying vascular dementia
- patient intermittently somnolent. avoid sedative medication.
- No other clear issues
- VBG showing normal pco2. not getting sedative medication
- CT head normal x 2
- check UA
- appreciate psych eval
Hypokalemia
- replace PRN
CAD s/p LCX/RCA stenting
Chronic normocytic anemia
Coronary disease
Severe Aortic stenosis s/p TAVR
Essential HTN
HLD
DVT ppx: SC Heparin
Code: DNR per prior records
Anticipated Discharge: > 48 hours
Subjective/Interval History
-
Date of Service: September 17, 2023
remains with hallucinations, minimally eating, also pocketing pills
Objective Data
-
Labs:
Laboratory Results
09/17/23
06:10
WBC 20.2 H
Hgb 10.4 L
Hct 29.8 L
Plt Count 221
Sodium 140
Potassium 3.5
Chloride 114 H
Carbon Dioxide 23
BUN 11
Creatinine 0.8
Glucose 96
Calcium 7.8 L
Vital Signs:
Vital Signs
Temp Pulse Resp BP Pulse Ox
98.3 F 57 18 175/93 98
09/17/23 07:30 09/17/23 07:30 09/17/23 07:30 09/17/23 07:30 09/17/23 07:30
I&O
09/16/23 09/17/23 09/18/23
06:59 06:59 06:59
Intake Total 240 / 240 1615 / 1615
Output Total 100 / 100
Balance 240 / 240 1515 / 1515
Physical Exam
-
General: No Apparent Distress and Appears Chronically Ill
HEENT: Normocephalic and Atraumatic
Respiratory: Negative Wheezes or Rales
Cardiac: Regular Rhythm
GI: Soft
Psych: Confused, Apparent Dementia and Other (somnolent)
Data Reviewed
-
Total Time Spent with Patient (in minutes): 45
Labs: Labs Reviewed by me
--- NOTE | 2023-09-17 12:11 | W.PN.UPDATE ---
Update Note
Progress Note Update
patient seen chart reviewed. discussed with nursing and with daughter. the patient continues to be very lethargic which concerns d. he has not been agitated and there have not been c/o hallucinations at this point which upset him. he takes no
psychotropic medications. i was able to rouse him momentarily but not to get him to engage in any conversation. i did check his med list to see if there is anything sedating. scopolamine is sedating. not clear when this was started but perhaps it
is time to stop it. psych will sign off at this point as there does not seem to be anything for us to do at this point.
[2023-09-17 13:41] LABS: Urine Albumin Negative (Neg - Trace); Urine Bilirubin 1+ (Negative); Urine Character Clear (Clear); Urine Color Yellow; Urine Glucose Negative (Negative); Urine Ketone Negative (Negative); Urine Leukocyte Negative (Negative); Urine Nitrite Negative (Negative); Urine Occult Blood Negative (Negative); Urine Urobilinogen 3+ (Neg - 1+)
[2023-09-17 16:00] VITALS: BP 112/52
--- NOTE | 2023-09-17 16:18 | CM ---
PT OT recommended SNF.
At discharge will need auth [employer] for Jean.
[facility] [place] said she can accept him after auth .
PLAN To [facility] after auth
[2023-09-17] MEDS: PLAVIX 75 MG PO (17:17)
[2023-09-17] MEDS: LIPITOR 80 MG PO (17:17)
[2023-09-17] MEDS: DUONEB 3 ML INH (21:01)
[2023-09-17] MEDS: LASIX 20 MG IV (22:35)
[2023-09-17 23:25] VITALS: BP 156/66
--- NOTE | 2023-09-17 23:41 | PTCARENOTE ---
FIELD SERVICES MANAGER made aware of patient with worsening crackles and expiratory wheeze throughout lungs since start of shift. He is on room air, no c/o SOB. Lung sounds are audible upon entering room. Prn neb tx administered as ordered 95% RA, no c/o SOB. BP
114/60 HR 76, IV lasix orderd by FIELD SERVICES MANAGER and administered, will continue plan of care.
[2023-09-18] VITALS: BP 140/74
[2023-09-18] MEDS: UNASYN IV ×3 (04:58→15:27)
[2023-09-18] MEDS: DUONEB 3 ML INH ×2 (05:48→11:48)
[2023-09-18 07:18] VITALS: BP 124/60
[2023-09-18 07:54] LABS: % Basophils 0.2 % (0-2); % Eosinophils 0.5 % (0-6); % Immature Granulocytes 3.8 % (0-0.5); % Lymphocytes 9.9 % (20.5-51.1); % Monocytes 7.3 % (1.7-9.3); % Neutrophils 78.3 % (42.2-75.2); Absolute Eosinophils 0.1 10^3/uL (0-0.7); Absolute Immature Granulocytes 0.6 10^3/uL (0-0.05); Absolute Lymphocytes 1.6 10^3/uL (1.2-3.4); Absolute Monocytes 1.2 10^3/uL (0.1-0.6); Absolute Neutrophils 12.8 10^3/uL (1.4-6.5); Hematocrit 29.7 % (39.0-52.0); Hemoglobin 10.5 g/dL (13.0-18.0); Mean Corp Hgb Conc. 35.4 g/dL (33.0-37.0); Mean Corpuscular Hgb 33.3 pg (27.0-31.0); Mean Corpuscular Volume 94.3 fL (80.0-94.0); Mean Platelet Volume 11.1 fL (7.4-10.4); Nucleated Red Blood Cells % 0.1 % (-); Platelet Count 196 10^3/uL (130-400); Red Blood Cell Count 3.15 10^6/uL (4.70-6.10); Red Cell Dist. Width 15.2 % (11.5-14.5); White Blood Cell Count 16.4 10^3/uL (4.8-10.8)
[2023-09-18] MEDS: LASIX PO ×2 (09:19→15:13)
[2023-09-18] MEDS: KLOR-CON PO ×2 (09:20→15:13)
[2023-09-18] MEDS: HEPARIN 5000 UNITS SC ×2 (09:20→20:44)
[2023-09-18] MEDS: LOW STRENGTH ASPIRIN PO ×2 (09:22→15:13)
[2023-09-18] MEDS: ZESTRIL PO ×2 (09:22→15:13)
[2023-09-18] MEDS: LOTRIMIN 1% CREAM 1 APPLIC TOPICAL ×2 (09:24→20:45)
[2023-09-18] MEDS: DESENEX/MITRAZOL/ZEASORB 1 APPLIC TOPICAL ×2 (09:26→20:44)
[2023-09-18 09:47] LABS: Blood Urea Nitrogen 11 mg/dl (9-20); Carbon Dioxide 23 mmol/L (22-30); Chloride 108 mmol/L (98-107); Estimated Creatinine Clearance 62 ml/min; Glucose 83 mg/dl (70-99); Potassium 2.8 mmol/L (3.5-5.1); Sodium 142 mmol/L (135-145); eGFR > 60.00
--- NOTE | 2023-09-18 11:46 | W.PN.HOSP.TC ---
Today's Communication/Plan
-
monitor mentation and oral intake
ongoing GOC discussions
Assessment / Plan
Assessment / Plan
09/07/[address]:
- There is facial swelling on the left, no discrete abscess in the soft tissues.
- There is a lucency in the #21 tooth in� the left mandible. Question tooth abscess causing the soft tissue swelling. Correlation with previous dental x-rays. The examination is severely limited due to the artifact from the dental amalgam.
- No change in a 3 cm soft tissue mass in the right side of the oropharynx. This has been felt to represent a benign lesion.
- No adenopathy.
- Osseous metastatic disease has been noted on prior imaging, patient with a history of prostate cancer and bone metastatic disease.
Assessment:
Left lower mandible odontogenic abscess involving tooth #21
Left facial cellulitis
- initial CT neck summarized above; repeat CT neck without abscess
- OMFS evaluations appreciated, no surgical intervention
- continue Unasyn, day 07/13 per ID
- monitor facial swelling; completed brief steroid course to help improve facial swelling
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
- per ENT, no concern that mass is causing aspiration and would not offer specific treatment or recommend biopsy
Aspiration pneumonia
- continue Unasyn, day 07/13 per ID
- monitor for hypoxia
- nebs prn, add mucolytics
Dysphagia/aspiration
- speech therapy evaluating; continue IDDSI level 5 although patient not eating much
- IVF were stopped due to concern for fluid retention
- would encourage oral intake, HOB 30 degrees to facilitate oral intake. briefly broached PEG tube with family if no improvement in intake but also explained PEG would not prevent aspiration and patient with dementia high risk for PEG complications.
- follow speech recs
Facial deviation likely from L facial cellulitis
- no evidence of CVA x 2 CT heads
Right hip pressure inj stage II - POA
- wound care following
Metastatic prostate cancer
- Multiple bony metastases noted on prior imaging.
- PET done 10/2021 with only FDG avid lesion noted in L3.� Other lesions sclerotic.
- Resume back on abiraterone home dose
Mild TME - waxing and waning throughout this hospitalization
Suspected underlying vascular dementia
- patient intermittently somnolent. avoid sedative medication.
- VBG showing normal pco2. not getting sedative medication
- CT head normal x 2
- UA negative. B12/Folate/TSH normal. check Ammonia
- appreciate psych eval, no new recs
Hypokalemia
- replace PRN
CAD s/p LCX/RCA stenting
Chronic normocytic anemia
Coronary disease
Severe Aortic stenosis s/p TAVR
Essential HTN
HLD
DVT ppx: SC Heparin
Code: DNR per prior records
Prognosis guarded if cannot wake up for oral intakes, will suffer weight loss, malnutrition, high risk for clots, wounds infections. Family notified options are PEG vs hospice care.
Anticipated Discharge: 24 - 48 hours
Subjective/Interval History
-
Date of Service: September 18, 2023
mental status continues to wax and wane with periods of lucidity and somnolence
per family ate a bit yesterday but later IVF were stopped due to concern for congestive breath sounds
today not responding to sternal rub or voice
VSS
Family at bedside
Objective Data
-
Labs:
Laboratory Results
09/18/23
06:25
WBC 16.4 H
Hgb 10.5 L
Hct 29.7 L
Plt Count 196
Sodium 142
Potassium 2.8 L
Chloride 108 H
Carbon Dioxide 23
BUN 11
Creatinine 0.9
Glucose 83
Calcium 8.0 L
Vital Signs:
Vital Signs
Temp Pulse Resp BP Pulse Ox
97.6 F 77 20 124/60 96
09/18/23 07:18 09/18/23 07:18 09/18/23 07:18 09/18/23 07:18 09/18/23 07:18
I&O
09/17/23 09/18/23 09/19/23
06:59 06:59 06:59
Intake Total 1615 / 1615 240 / 240
Output Total 100 / 100 500 / 500
Balance 1515 / 1515 -260 / -260
Physical Exam
-
General: Appears Chronically Ill
HEENT: Normocephalic and Atraumatic
Respiratory: Rhonchi and Decreased Breath Sounds
Cardiac: Regular Rhythm and S1/S2
GI: Soft
Genito-urinary: No Costovertebral Tender
Psych: Apparent Dementia and Other (somnolent)
Data Reviewed
-
Total Time Spent with Patient (in minutes): 45
Labs: Labs Reviewed by me
[2023-09-18] MEDS: PLAVIX PO (15:13)
[2023-09-18] MEDS: LIPITOR PO (15:13)
[2023-09-18 15:18] VITALS: BP 128/67
[2023-09-18] MEDS: KCL 270 MEQ IV (20:39)
[2023-09-18 23:30] VITALS: BP 140/74
[2023-09-19] MEDS: UNASYN IV ×5 (00:28→21:16)
[2023-09-19] MEDS: FLUSH (NSS) 1 FLUSH IV (00:29)
[2023-09-19] MEDS: FLUSH (NSS) 2 FLUSH IV (04:55)
[2023-09-19] MEDS: DUONEB 3 ML INH (05:28)
[2023-09-19 06:29] LABS: % Basophils 0.3 % (0-2); % Eosinophils 0.5 % (0-6); % Immature Granulocytes 2.5 % (0-0.5); % Lymphocytes 6.6 % (20.5-51.1); % Monocytes 5.1 % (1.7-9.3); Absolute Basophils 0.1 10^3/uL (0-0.2); Absolute Eosinophils 0.1 10^3/uL (0-0.7); Absolute Immature Granulocytes 0.4 10^3/uL (0-0.05); Absolute Lymphocytes 1.1 10^3/uL (1.2-3.4); Absolute Monocytes 0.8 10^3/uL (0.1-0.6); Absolute Neutrophils 13.6 10^3/uL (1.4-6.5); Hematocrit 28.9 % (39.0-52.0); Mean Corp Hgb Conc. 34.6 g/dL (33.0-37.0); Mean Corpuscular Hgb 32.6 pg (27.0-31.0); Mean Corpuscular Volume 94.1 fL (80.0-94.0); Mean Platelet Volume 11.1 fL (7.4-10.4); Nucleated Red Blood Cells % 0.1 % (-); Platelet Count 170 10^3/uL (130-400); Red Blood Cell Count 3.07 10^6/uL (4.70-6.10); Red Cell Dist. Width 15.3 % (11.5-14.5)
[2023-09-19 06:40] LABS: Ammonia < 9 umol/L (9-30)
[2023-09-19 06:56] LABS: Blood Urea Nitrogen 11 mg/dl (9-20); Calcium 7.9 mg/dl (8.4-10.2); Carbon Dioxide 24 mmol/L (22-30); Chloride 113 mmol/L (98-107); Estimated Creatinine Clearance 56 ml/min; Glucose 110 mg/dl (70-99); Potassium 2.7 mmol/L (3.5-5.1); Sodium 143 mmol/L (135-145); eGFR > 60.00
[2023-09-19 07:30] VITALS: BP 147/78
[2023-09-19] MEDS: HEPARIN 5000 UNITS SC ×2 (09:02→20:55)
[2023-09-19] MEDS: KCL 270 MEQ IV (09:03)
[2023-09-19] MEDS: DESENEX/MITRAZOL/ZEASORB 1 APPLIC TOPICAL ×2 (09:04→20:53)
[2023-09-19] MEDS: LOTRIMIN 1% CREAM 1 APPLIC TOPICAL ×2 (09:07→20:53)
[2023-09-19] MEDS: KLOR-CON PO (09:15)
[2023-09-19] MEDS: LASIX PO (09:15)
[2023-09-19] MEDS: MIRALAX PO (09:16)
[2023-09-19] MEDS: ZESTRIL PO (09:16)
[2023-09-19] MEDS: LOW STRENGTH ASPIRIN PO (09:16)
--- NOTE | 2023-09-19 15:36 | W.PN.HOSP.TC ---
Today's Communication/Plan
-
hospice eval and ongoing GOC
continue Abx
Assessment / Plan
Assessment / Plan
09/07/[address]:
- There is facial swelling on the left, no discrete abscess in the soft tissues.
- There is a lucency in the #21 tooth in� the left mandible. Question tooth abscess causing the soft tissue swelling. Correlation with previous dental x-rays. The examination is severely limited due to the artifact from the dental amalgam.
- No change in a 3 cm soft tissue mass in the right side of the oropharynx. This has been felt to represent a benign lesion.
- No adenopathy.
- Osseous metastatic disease has been noted on prior imaging, patient with a history of prostate cancer and bone metastatic disease.
Assessment:
Left lower mandible odontogenic abscess involving tooth #21
Left facial cellulitis
- initial CT neck summarized above; repeat CT neck without abscess
- OMFS evaluations appreciated, no surgical intervention
- continue Unasyn, day 12/14 per ID
- monitor facial swelling; completed brief steroid course to help improve facial swelling
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
- per ENT, no concern that mass is causing aspiration and would not offer specific treatment or recommend biopsy
Aspiration pneumonia
- continue Unasyn, day 12/14 per ID
- monitor for hypoxia
- nebs prn, add mucolytics
Dysphagia/aspiration
- speech therapy evaluating; continue IDDSI level 5 although patient not eating much
- IVF were stopped due to concern for fluid retention
- would encourage oral intake, HOB 30 degrees to facilitate oral intake. briefly broached PEG tube with family if no improvement in intake but also explained PEG would not prevent aspiration and patient with dementia high risk for PEG complications.
- follow speech recs
Facial deviation likely from L facial cellulitis
- no evidence of CVA x 2 CT heads
Right hip pressure inj stage II - POA
- wound care following
Metastatic prostate cancer
- Multiple bony metastases noted on prior imaging.
- PET done 10/2021 with only FDG avid lesion noted in L3.� Other lesions sclerotic.
- Resume back on abiraterone home dose
Mild TME - waxing and waning throughout this hospitalization
Suspected underlying vascular dementia
- patient intermittently somnolent. avoid sedative medication.
- VBG showing normal pco2. not getting sedative medication
- CT head normal x 2
- UA negative. B12/Folate/TSH normal. Ammonia level normal
- appreciate psych eval, no new recs
- I expressed to family my opinion that patient has severe dementia with periods of lethargy and likely would be hospice candidate. Hospice consulted.
Hypokalemia
- replace PRN
CAD s/p LCX/RCA stenting
Chronic normocytic anemia
Coronary disease
Severe Aortic stenosis s/p TAVR
Essential HTN
HLD
DVT ppx: SC Heparin
Code: DNR per prior records
Prognosis guarded if cannot wake up for oral intakes, will suffer weight loss, malnutrition, high risk for clots, wounds infections. Family notified options are PEG vs hospice care. Will involve hospice to begin discussions.
Anticipated Discharge: > 48 hours
Subjective/Interval History
-
Date of Service: September 19, 2023
patient remains somlonent lethargic, not eating much
now on 4L NC
Objective Data
-
Labs:
Laboratory Results
09/19/23
06:16
WBC 16.0 H
Hgb 10.0 L
Hct 28.9 L
Plt Count 170
Sodium 143
Potassium 2.7 L*
Chloride 113 H
Carbon Dioxide 24
BUN 11
Creatinine 1.0
Glucose 110 H
Calcium 7.9 L
Vital Signs:
Vital Signs
Temp Pulse Resp BP Pulse Ox
98.8 F 81 18 147/78 97
09/19/23 07:30 09/19/23 07:30 09/19/23 07:30 09/19/23 07:30 09/19/23 07:30
I&O
09/18/23 09/19/23 09/20/23
06:59 06:59 06:59
Intake Total 240 / 240 750 / 750
Output Total 500 / 500
Balance -260 / -260 750 / 750
Physical Exam
-
General: Appears Chronically Ill
HEENT: Normocephalic and Atraumatic
Respiratory: Rhonchi; Negative Wheezes
Cardiac: Regular Rhythm and S1/S2
GI: Soft
Musculoskeletal: No Edema
Neuro: AO x 3
Psych: Calm
Data Reviewed
-
Total Time Spent with Patient (in minutes): 42
Labs: Labs Reviewed by me
[2023-09-19] MEDS: LIPITOR PO (15:58)
[2023-09-19] MEDS: PLAVIX PO (15:59)
[2023-09-19 22:22] VITALS: BP 143/70
[2023-09-20] MEDS: UNASYN IV ×2 (04:04→11:18)
[2023-09-20 07:00] VITALS: BP 150/103
[2023-09-20 07:31] LABS: % Basophils 0.2 % (0-2); % Eosinophils 1.3 % (0-6); % Immature Granulocytes 1.8 % (0-0.5); % Lymphocytes 4.9 % (20.5-51.1); % Monocytes 6.4 % (1.7-9.3); % Neutrophils 85.4 % (42.2-75.2); Absolute Eosinophils 0.2 10^3/uL (0-0.7); Absolute Immature Granulocytes 0.3 10^3/uL (0-0.05); Absolute Lymphocytes 0.7 10^3/uL (1.2-3.4); Absolute Monocytes 0.9 10^3/uL (0.1-0.6); Hematocrit 27.3 % (39.0-52.0); Hemoglobin 9.3 g/dL (13.0-18.0); Mean Corp Hgb Conc. 34.1 g/dL (33.0-37.0); Mean Corpuscular Hgb 32.7 pg (27.0-31.0); Mean Corpuscular Volume 96.1 fL (80.0-94.0); Mean Platelet Volume 11.5 fL (7.4-10.4); Nucleated Red Blood Cells % 0 % (-); Platelet Count 153 10^3/uL (130-400); Red Blood Cell Count 2.84 10^6/uL (4.70-6.10); Red Cell Dist. Width 15.5 % (11.5-14.5); White Blood Cell Count 14.1 10^3/uL (4.8-10.8)
[2023-09-20 07:47] LABS: Blood Urea Nitrogen 13 mg/dl (9-20); Calcium 7.6 mg/dl (8.4-10.2); Carbon Dioxide 24 mmol/L (22-30); Chloride 118 mmol/L (98-107); Estimated Creatinine Clearance 47 ml/min; Glucose 102 mg/dl (70-99); Sodium 146 mmol/L (135-145); eGFR 58.53
[2023-09-20 07:48] LABS: Potassium 2.7 mmol/L (3.5-5.1)
[2023-09-20] MEDS: DESENEX/MITRAZOL/ZEASORB 1 APPLIC TOPICAL ×2 (07:57→20:58)
[2023-09-20] MEDS: KLOR-CON PO (07:58)
[2023-09-20] MEDS: LASIX PO (07:58)
[2023-09-20] MEDS: HEPARIN 5000 UNITS SC ×2 (07:58→20:58)
[2023-09-20] MEDS: ZESTRIL PO (08:00)
[2023-09-20] MEDS: LOTRIMIN 1% CREAM 1 APPLIC TOPICAL ×2 (08:00→20:59)
[2023-09-20] MEDS: MIRALAX PO (08:00)
[2023-09-20] MEDS: LOW STRENGTH ASPIRIN PO (08:00)
--- NOTE | 2023-09-20 09:34 | CM ---
[facility] 09/20/23 15:55:
CM placed call to son per his request
GOC continue to be discussed
Son would like to take pt home with palliative care
Concern noted that hospice may overmedicate pt and hasten
Palliative vs hospice philosophy reviewed in depth
Son notes he is willing to assist in pt's care at home
Private duty providers emailed per his request [email or web address]
Palliative brochure left bedside per his request
Addendum [facility] by [facility] 09/20/23 14:17:
Discussion with Hospice and Dr Nevarez
Dtr and son with deferring GOCs at this time
Dtr would like to proceed with hospice and son requesting palliative care instead
Call with dtr who was tearful- emotional support provided
CM will continue to be available as GOC are determined
Per hospice, pt would be GIP appropriate
Original Note:
CM reviewed chart and noted CM consult for hospice
Call with dtr Luana
Dtr requesting hospice care at home
She resides with her father and plans to care for him
Provider choice discussed and rfeerral made to Hospice
Hospice referral pending at this time
Discharge Disposition- anticipate home with Hospice
--- NOTE | 2023-09-20 11:32 | W.PN.ID1 ---
Date of Service
Date of Service: September 20, 2023
Today's Communication
Can dc Unasyn (d13).
ID will sign off.
Assessment / Plan
# Left facial cellulitis from tooth #21 infection, resolved
# Acute RLL aspiration pneumonia (onset 09/12)
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
- VSE mod oral and mild-mod pharyngeal dysphagia, no aspirated noted but remains at high risk.
- Per chart, pt is for home hospice.
- Can dc Unasyn (d13)
# Leukocytosis - trending down
#Additional Past Medical History:
Dementia
CAD s/p stent
Aortic stenosis s/p TAVR
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
Hypertension
Chief Complaint
-: Other (aspiration, dental infection)
Subjective / Review of Systems
Remains lethargic.
Vital Signs / Physical Exam
Vital Signs
Vital Signs
Temp Pulse Resp BP Pulse Ox
99.0 F 81 18 150/103 95
09/20/23 07:00 09/20/23 07:00 09/20/23 07:00 09/20/23 07:00 09/20/23 09:12
Physical Exam
Constitutional: Comfortable and Chronically Ill
Head: Other (left mandible edema resolved)
Cardiovascular: Regular Rate and S1/S2
Pulmonary: Clear (anteriorly)
Gastrointestinal: Soft, Non Tender and Non Distended
Objective Data
Lab Data
Lab Results
09/20/23 06:18
Estimated Creat Clear 47 ml/min 09/20/23 06:18
Lactic Acid Cancelled 09/07/23 20:15
Total Bilirubin 1.6 mg/dl (0.2-1.3) H 09/07/23 11:53
AST 36 U/L (17-59) 09/07/23 11:53
ALT 18 U/L (0-50) 09/07/23 11:53
Alkaline Phosphatase 104 U/L (38-126) 09/07/23 11:53
Most recent labs reviewed.
Micro Results:
09/07/23 16:47 Blood Culture - Final
Blood/Venous No Growth - Final Report
09/07/23 16:24 Blood Culture - Final
Blood/Venous No Growth - Final Report
09/07/23 CT neck: There is facial swelling on the left, no discrete abscess in the soft tissues. There is a lucency in the #21 tooth in� the left mandible. Question tooth abscess causing the soft tissue swelling. Correlation with previous dental
x-rays. The examination is severely limited due to the artifact from the dental amalgam. No change in a 3 cm soft tissue mass in the right side of the oropharynx. This has been felt to represent a benign lesion.
09/12/23 CXR: Findings suggesting mild right lower lobe pneumonia. New
09/14/23 CT neck: There is dental caries involving the left maxillary premolar with overlying soft tissue swelling but no focal fluid collection to suggest abscess There is a 3.5 cm stable partially calcified soft tissue mass in the� parapharyngeal
soft tissues of the right hypopharynx, posterior to the right submandibular gland, associated with compression and deviation of the hypopharynx to the left.
--- NOTE | 2023-09-20 12:04 | HOSPNOTE ---
Long conversation with daughter about hospice care and the philosophy. The plan was for home hospice if the family was in agreement. I also spoke to the son on the phone and he was not fully on board with hospice care and wanted to speak with
someone from palliative care. After speaking with attending he feels inpatient hospice is appropriate. I told daughter that we feel inpatient hospice would be appropriate and palliative care is not appropriate that the patient needs hospice
services. The daughter is very tearful and feels hospice is appropriate however her brother is not fully on board. I asked the daughter to call me with any further questions and will continue to follow to help facilitate decisions. Case management
and Attending aware.
[2023-09-20] MEDS: KCL 270 MEQ IV ×2 (13:39→17:18)
--- NOTE | 2023-09-20 13:43 | W.PN.HOSP.TC ---
Today's Communication/Plan
-
discharge planning for hospice .
Assessment / Plan
Assessment / Plan
09/07/[address]:
- There is facial swelling on the left, no discrete abscess in the soft tissues.
- There is a lucency in the #21 tooth in� the left mandible. Question tooth abscess causing the soft tissue swelling. Correlation with previous dental x-rays. The examination is severely limited due to the artifact from the dental amalgam.
- No change in a 3 cm soft tissue mass in the right side of the oropharynx. This has been felt to represent a benign lesion.
- No adenopathy.
- Osseous metastatic disease has been noted on prior imaging, patient with a history of prostate cancer and bone metastatic disease.

Left lower mandible odontogenic abscess involving tooth #21
Left facial cellulitis
- initial CT neck summarized above; repeat CT neck without abscess
- OMFS evaluations appreciated, no surgical intervention
- continue Unasyn, day 12/14 per ID
- monitor facial swelling; completed brief steroid course to help improve facial swelling
Parapharyngeal mass
Significant dysphagia
-per ENT, no concern that mass is causing aspiration and would not offer specific treatment or recommend biopsy
-Continue to remains NPO due to increased aspiration risk.
-speech therapy evaluating; continue IDDSI level 5 although patient not eating much
-IVF were stopped due to concern for fluid retention
Aspiration pneumonia
- continue Unasyn, day 12/14 per ID
- monitor for hypoxia
- nebs prn, add mucolytics
Hypokalemia
- replaced
Facial deviation likely from L facial cellulitis
- no evidence of CVA x 2 CT heads
Right hip pressure inj stage II - POA
- wound care following
Metastatic prostate cancer
- Multiple bony metastases noted on prior imaging.
- PET done 10/2021 with only FDG avid lesion noted in L3.� Other lesions sclerotic.
- Resume back on abiraterone home dose
Mild TME - waxing and waning throughout this hospitalization
Suspected underlying vascular dementia
- patient intermittently somnolent. avoid sedative medication.
- VBG showing normal pco2. not getting sedative medication
- CT head normal x 2
- UA negative. B12/Folate/TSH normal. Ammonia level normal
- appreciate psych eval, no new recs
- I expressed to family my opinion that patient has severe dementia with periods of lethargy and likely would be hospice candidate. Hospice consulted.
CAD s/p LCX/RCA stenting
Chronic normocytic anemia
Coronary disease
Severe Aortic stenosis s/p TAVR
Essential HTN
HLD
DVT ppx: SC Heparin
Code: DNR per prior records
09/20 discussed with son and daughter that patient condition likely will remain precarious and patient high risk for aspiration and continues to remain nothing by mouth. Possible option of PEG tube versus hospice discussed. Daughter and son prefers
patient to be home hospice although patient requiring more care and ideal for SNF versus inpatient hospice. Discussed with case management and hospice staff for further confirmation and planning accordingly.
Total time spent 55 minutes
Anticipated Discharge: Within 24 hours
Subjective/Interval History
-
Date of Service: September 20, 2023
Patient remains sedated
Opening eyes although not verbalizing anything
no other issues
Objective Data
-
Labs:
Laboratory Results
09/20/23 09/20/23
06:18 20:00
WBC 14.1 H
Hgb 9.3 L
Hct 27.3 L
Plt Count 153
Sodium 146 H
Potassium 2.7 L* Pending
Chloride 118 H
Carbon Dioxide 24
BUN 13
Creatinine 1.2
Glucose 102 H
Calcium 7.6 L
Vital Signs:
Vital Signs
Temp Pulse Resp BP Pulse Ox
99.0 F 81 18 150/103 95
09/20/23 07:00 09/20/23 07:00 09/20/23 07:00 09/20/23 07:00 09/20/23 09:12
I&O
09/19/23 09/20/23 09/21/23
06:59 06:59 06:59
Intake Total 750 / 750 750 / 750
Balance 750 / 750 750 / 750
Review of Systems
-
Unable to obtain full review of systems at this time due to: Acuity
Physical Exam
-
General: Negative Respiratory Distress or Appears in Distress
HEENT: Negative Oxygen
Neuro: Awake; Negative Oriented
Psych: Calm
[2023-09-20 15:57] VITALS: BP 138/52
[2023-09-20] MEDS: PLAVIX PO (17:18)
[2023-09-20] MEDS: LIPITOR PO (17:18)
[2023-09-20 20:21] LABS: Magnesium 2.2 mg/dl (1.6-2.3)
[2023-09-20 23:00] VITALS: BP 120/62
[2023-09-21] MEDS: TYLENOL/FEVERALL 650 MG RECTAL ×2 (00:30→23:15)
[2023-09-21] MEDS: HEPARIN 5000 UNITS SC (07:36)
[2023-09-21] MEDS: ZESTRIL PO (07:37)
[2023-09-21] MEDS: MIRALAX PO (07:37)
[2023-09-21] MEDS: KLOR-CON PO (07:37)
[2023-09-21] MEDS: LOW STRENGTH ASPIRIN PO (07:37)
[2023-09-21] MEDS: LASIX PO (07:37)
[2023-09-21] MEDS: DESENEX/MITRAZOL/ZEASORB 1 APPLIC TOPICAL ×2 (07:38→21:51)
[2023-09-21] MEDS: LOTRIMIN 1% CREAM 1 APPLIC TOPICAL ×2 (07:38→21:51)
[2023-09-21 07:59] VITALS: BP 128/61
--- NOTE | 2023-09-21 08:15 | VATNOTE ---
During routine rounds, pt's L forearm where PIV was located was noted to be grossly infiltrated. Pt had gotten potassium and ampicillin. PIV removed and restarted in R arm. L forearm is significantly swollen, measuring 33 cm at widest area of
swelling. Arm elevated and will continue to monitor.
[2023-09-21 08:45] LABS: Blood Urea Nitrogen 16 mg/dl (9-20); Calcium 7.9 mg/dl (8.4-10.2); Carbon Dioxide 23 mmol/L (22-30); Chloride 122 mmol/L (98-107); Estimated Creatinine Clearance 40 ml/min; Glucose 97 mg/dl (70-99); Potassium 3.1 mmol/L (3.5-5.1); Sodium 147 mmol/L (135-145); eGFR 48.65
--- NOTE | 2023-09-21 13:13 | CHAP ---
Father Romaine Cota of [facility] in [place], our associate application developer public relations senior associate, came and gave the patient Last Rites this morning.
--- NOTE | 2023-09-21 14:02 | HOSPNOTE ---
Went to see patient and speak with daughter. She is in agreement with comfort for patient, the patient has not received any pain medications does not look to be agitated and appears comfortable at this time. We will continue to monitor and assess
for inpatient hospice. Attending and case management aware.
--- NOTE | 2023-09-21 14:22 | W.PN.HOSP.TC ---
Today's Communication/Plan
-
initiate comfort care
Assessment / Plan
Assessment / Plan
09/21
Repeat discussion done with son/daughter over conference call today regarding patient poor prognosis.
Patient unfortunately remains encephalopathic and not having enough oral intake of calories or liquid.
BMP showing signs of volume depletion with some hyponatremia/renal failure and hypokalemia setting in
Patient aspiration risk will constantly be present and remains of high risk of aspiration pneumonia/sepsis. PEG has been discussed and agreed upon not to go for tube placement.
Transition patient to comfort care. No significant pain issue and will qualify for inpatient hospice.
With significant encephalopathy/no oral intake patient have limited life expectancy and appropriate for comfort care.
RN/CM notified about family decision and my discussion with family.
Total time spent : 56 mins

09/07/[address]:
- There is facial swelling on the left, no discrete abscess in the soft tissues.
- There is a lucency in the #21 tooth in� the left mandible. Question tooth abscess causing the soft tissue swelling. Correlation with previous dental x-rays. The examination is severely limited due to the artifact from the dental amalgam.
- No change in a 3 cm soft tissue mass in the right side of the oropharynx. This has been felt to represent a benign lesion.
- No adenopathy.
- Osseous metastatic disease has been noted on prior imaging, patient with a history of prostate cancer and bone metastatic disease.

Left lower mandible odontogenic abscess involving tooth #21
Left facial cellulitis
- initial CT neck summarized above; repeat CT neck without abscess
- OMFS evaluations appreciated, no surgical intervention
- continue Unasyn, day 08/12 per ID
- monitor facial swelling; completed brief steroid course to help improve facial swelling
Parapharyngeal mass
Significant dysphagia
-per ENT, no concern that mass is causing aspiration and would not offer specific treatment or recommend biopsy
-Continue to remains NPO due to increased aspiration risk.
-speech therapy evaluating; continue IDDSI level 5 although patient not eating much
-IVF were stopped due to concern for fluid retention
Aspiration pneumonia
- continue Unasyn, day 08/12 per ID
- monitor for hypoxia
- nebs prn, add mucolytics
Hypokalemia
- replaced
Facial deviation likely from L facial cellulitis
- no evidence of CVA x 2 CT heads
Right hip pressure inj stage II - POA
- wound care following
Metastatic prostate cancer
- Multiple bony metastases noted on prior imaging.
- PET done 10/2021 with only FDG avid lesion noted in L3.� Other lesions sclerotic.
- Resume back on abiraterone home dose
Mild TME - waxing and waning throughout this hospitalization
Suspected underlying vascular dementia
- patient intermittently somnolent. avoid sedative medication.
- VBG showing normal pco2. not getting sedative medication
- CT head normal x 2
- UA negative. B12/Folate/TSH normal. Ammonia level normal
- appreciate psych eval, no new recs
- I expressed to family my opinion that patient has severe dementia with periods of lethargy and likely would be hospice candidate. Hospice consulted.
CAD s/p LCX/RCA stenting
Chronic normocytic anemia
Coronary disease
Severe Aortic stenosis s/p TAVR
Essential HTN
HLD
DVT ppx: SC Heparin
Code: DNR per prior records

Anticipated Discharge: 24 - 48 hours
Subjective/Interval History
-
Date of Service: September 21, 2023
remains encephalopathic and minimally responsive
afebrile overnight
Objective Data
-
Labs:
Laboratory Results
09/21/23
08:00
Sodium 147 H
Potassium 3.1 L
Chloride 122 H
Carbon Dioxide 23
BUN 16
Creatinine 1.4 H
Glucose 97
Calcium 7.9 L
Vital Signs:
Vital Signs
Temp Pulse Resp BP Pulse Ox
98.8 F 67 16 128/61 91
09/21/23 07:59 09/21/23 07:59 09/21/23 07:59 09/21/23 07:59 09/21/23 07:59
I&O
09/20/23 09/21/23 09/22/23
06:59 06:59 06:59
Intake Total 750 / 750 480 / 480
Balance 750 / 750 480 / 480
Review of Systems
-
Unable to obtain full review of systems at this time due to: Acuity
Physical Exam
-
General: Negative Respiratory Distress or Appears in Distress
HEENT: Oxygen
GI: Soft and Nontender
Neuro: No Motor Deficits; Negative Awake or Alert
--- NOTE | 2023-09-21 15:44 | PN.CDI ---
CDI
- -
CDI:
Physician Documentation Request
Admit Date: 09/07/23 21:00
Dear Doctor Roque,
Patient admitted for odontogenic abscess and cellulitis.
09/21 Hospitalist PN: 'BMP showing signs of volume depletion with some hyponatremia/renal failure and hypokalemia setting in'
09/19/23 09/21/23
06:16 08:00
Creatinine 1.0 1.4 H
Criteria for MALDONADO*
1 Increase in serum creatinine by > or = to 0.3 mg/dL (> or = to 26.5 micromol/L) within 48 hours, OR
2 Increase in serum creatinine to > or = to 1.5 times baseline, which is known or presumed to have occurred within 7 days, OR
3 Urine volume < 0.5 nL/kg/hour for six hours
Clarify which of the following accurately represents the acuity of the renal failure. Possible options might include:
Acute
Chronic
Other
Use of terms such as suspected, likely, concern for, or probable (associated with a specific diagnosis that is being evaluated, monitored, or treated as if it exists) are acceptable and can be coded in the inpatient setting, when documented at the
time of discharge.
Thank you,
Maria Alejandra Lincoln RN, BSN
CDI Specialist
Available via [place] text
Please use your independent medical judgment in providing your response.
--- NOTE | 2023-09-21 16:20 | CM ---
Plan for comfort measures at that this
Hospice will continue to follow pt
Discharge Disposition- comfort measures
[2023-09-21 23:00] VITALS: BP 117/51
[2023-09-21] MEDS: ATIVAN 0.5 MG IV (23:15)
[2023-09-21] MEDS: NSS (PRESERVATIVE FREE) 0.25 ML IV (23:16)
[2023-09-22 07:43] VITALS: BP 139/65
[2023-09-22] MEDS: MIRALAX PO (07:57)
[2023-09-22] MEDS: DESENEX/MITRAZOL/ZEASORB 1 APPLIC TOPICAL ×2 (07:59→20:36)
[2023-09-22] MEDS: LOTRIMIN 1% CREAM 1 APPLIC TOPICAL ×2 (08:00→20:36)
--- NOTE | 2023-09-22 08:18 | W.PN.HOSP.TC ---
Today's Communication/Plan
-
continue comfort measures
Assessment / Plan
Assessment / Plan
09/21
Repeat discussion done with son/daughter over conference call today regarding patient poor prognosis.
Patient unfortunately remains encephalopathic and not having enough oral intake of calories or liquid.
BMP showing signs of volume depletion with some hyponatremia/renal failure and hypokalemia setting in
Patient aspiration risk will constantly be present and remains of high risk of aspiration pneumonia/sepsis. PEG has been discussed and agreed upon not to go for tube placement.
Transition patient to comfort care. No significant pain issue and will qualify for inpatient hospice.
With significant encephalopathy/no oral intake patient have limited life expectancy and appropriate for comfort care.
RN/CM notified about family decision and my discussion with family.
09/22
Patient remains sedated, difficult to arouse today on physical stimuli
Comfortable in no signs of respiratory distress
No signs of any kind of pain
Continue monitoring and supportive measures as needed
Continue comfort care measures.

09/07/[address]:
- There is facial swelling on the left, no discrete abscess in the soft tissues.
- There is a lucency in the #21 tooth in� the left mandible. Question tooth abscess causing the soft tissue swelling. Correlation with previous dental x-rays. The examination is severely limited due to the artifact from the dental amalgam.
- No change in a 3 cm soft tissue mass in the right side of the oropharynx. This has been felt to represent a benign lesion.
- No adenopathy.
- Osseous metastatic disease has been noted on prior imaging, patient with a history of prostate cancer and bone metastatic disease.

Left lower mandible odontogenic abscess involving tooth #21
Left facial cellulitis
- initial CT neck summarized above; repeat CT neck without abscess
- OMFS evaluations appreciated, no surgical intervention
- continue Unasyn, day 08/12 per ID
- monitor facial swelling; completed brief steroid course to help improve facial swelling
Parapharyngeal mass
Significant dysphagia
-per ENT, no concern that mass is causing aspiration and would not offer specific treatment or recommend biopsy
-Continue to remains NPO due to increased aspiration risk.
-speech therapy evaluating; continue IDDSI level 5 although patient not eating much
-IVF were stopped due to concern for fluid retention
Aspiration pneumonia
- continue Unasyn, day 08/12 per ID
- monitor for hypoxia
- nebs prn, add mucolytics
Hypokalemia
- replaced
Facial deviation likely from L facial cellulitis
- no evidence of CVA x 2 CT heads
Right hip pressure inj stage II - POA
- wound care following
Metastatic prostate cancer
- Multiple bony metastases noted on prior imaging.
- PET done 10/2021 with only FDG avid lesion noted in L3.� Other lesions sclerotic.
- Resume back on abiraterone home dose
Mild TME - waxing and waning throughout this hospitalization
Suspected underlying vascular dementia
- patient intermittently somnolent. avoid sedative medication.
- VBG showing normal pco2. not getting sedative medication
- CT head normal x 2
- UA negative. B12/Folate/TSH normal. Ammonia level normal
- appreciate psych eval, no new recs
- I expressed to family my opinion that patient has severe dementia with periods of lethargy and likely would be hospice candidate. Hospice consulted.
CAD s/p LCX/RCA stenting
Chronic normocytic anemia
Coronary disease
Severe Aortic stenosis s/p TAVR
Essential HTN
HLD
DVT ppx: SC Heparin
Code: DNR per prior records

Anticipated Discharge: Within 24 hours
Subjective/Interval History
-
Date of Service: September 22, 2023
Remains sedated, minimally responsive on physical stimuli
Not in distress
Objective Data
-
Vital Signs:
Vital Signs
Temp Pulse Resp BP Pulse Ox
98.6 F 65 20 139/65 93
09/22/23 07:43 09/22/23 07:43 09/22/23 07:43 09/22/23 07:43 09/22/23 07:43
I&O
09/21/23 09/22/23 09/23/23
06:59 06:59 06:59
Intake Total 480 / 480
Output Total 150 / 150
Balance 480 / 480 -150 / -150
Review of Systems
-
Unable to obtain full review of systems at this time due to: Acuity
Physical Exam
-
General: Comfortable; Negative Respiratory Distress
Respiratory: Rhonchi
Cardiac: Regular Rhythm and S1/S2; Negative Murmur
GI: Soft and Nondistended
Neuro: Negative Awake or Alert
--- NOTE | 2023-09-22 10:34 | HOSPNOTE ---
Saw patient this morning. He is comfortable in bed with his eyes closed. He does not appear to be in any discomfort or agitation at this time. He has only needed 1 IVP PRN Ativan last night. Nothing thus far today. No family at bedside. He will
remain on comfort measures. He does not meet GIP criteria at this time. CM and attending notified. Bedside nurse also notified.
--- NOTE | 2023-09-22 15:27 | CM ---
Patient continues on comfort care. Patient not eating or drinking per RN. Per notes is comfortable.
Plan: Case managment will continue to follow and assist with discharge planning. Patient remains comfort measures.
[2023-09-22 23:23] VITALS: BP 119/56
[2023-09-23 08:31] VITALS: BP 110/56
[2023-09-23] MEDS: MIRALAX PO (09:40)
[2023-09-23] MEDS: DESENEX/MITRAZOL/ZEASORB 1 APPLIC TOPICAL ×2 (09:40→20:48)
[2023-09-23] MEDS: LOTRIMIN 1% CREAM 1 APPLIC TOPICAL ×2 (09:41→20:48)
--- NOTE | 2023-09-23 12:31 | W.PN.HOSP.TC ---
Addendum entered and electronically signed by Shoaib Nevarez MD 10/03/23 09:37:
* Document addendum added in response to CDI query *
Add on diagnosis list :
Hypernatremia - secondary to decreased oral intake
Original Note:
Today's Communication/Plan
-
continue comfort measures
Assessment / Plan
Assessment / Plan
09/21
Repeat discussion done with son/daughter over conference call today regarding patient poor prognosis.
Patient unfortunately remains encephalopathic and not having enough oral intake of calories or liquid.
BMP showing signs of volume depletion with some hyponatremia/renal failure and hypokalemia setting in
Patient aspiration risk will constantly be present and remains of high risk of aspiration pneumonia/sepsis. PEG has been discussed and agreed upon not to go for tube placement.
Transition patient to comfort care. No significant pain issue and will qualify for inpatient hospice.
With significant encephalopathy/no oral intake patient have limited life expectancy and appropriate for comfort care.
RN/CM notified about family decision and my discussion with family.
09/22
Patient remains sedated, difficult to arouse today on physical stimuli
Comfortable in no signs of respiratory distress
No signs of any kind of pain
Continue monitoring and supportive measures as needed
Continue comfort care measures.
09/23
remains comfortable, not requiring any pain medication
continue comfort measures for now

09/07/[address]:
- There is facial swelling on the left, no discrete abscess in the soft tissues.
- There is a lucency in the #21 tooth in� the left mandible. Question tooth abscess causing the soft tissue swelling. Correlation with previous dental x-rays. The examination is severely limited due to the artifact from the dental amalgam.
- No change in a 3 cm soft tissue mass in the right side of the oropharynx. This has been felt to represent a benign lesion.
- No adenopathy.
- Osseous metastatic disease has been noted on prior imaging, patient with a history of prostate cancer and bone metastatic disease.

Left lower mandible odontogenic abscess involving tooth #21
Left facial cellulitis
- initial CT neck summarized above; repeat CT neck without abscess
- OMFS evaluations appreciated, no surgical intervention
- continue Unasyn, day 12/14 per ID
- monitor facial swelling; completed brief steroid course to help improve facial swelling
Parapharyngeal mass
Significant dysphagia
-per ENT, no concern that mass is causing aspiration and would not offer specific treatment or recommend biopsy
-Continue to remains NPO due to increased aspiration risk.
-speech therapy evaluating; continue IDDSI level 5 although patient not eating much
-IVF were stopped due to concern for fluid retention
Aspiration pneumonia
- continue Unasyn, day 12/14 per ID
- monitor for hypoxia
- nebs prn, add mucolytics
Hypokalemia
- replaced
Facial deviation likely from L facial cellulitis
- no evidence of CVA x 2 CT heads
Right hip pressure inj stage II - POA
- wound care following
Metastatic prostate cancer
- Multiple bony metastases noted on prior imaging.
- PET done 10/2021 with only FDG avid lesion noted in L3.� Other lesions sclerotic.
- Resume back on abiraterone home dose
Mild TME - waxing and waning throughout this hospitalization
Suspected underlying vascular dementia
- patient intermittently somnolent. avoid sedative medication.
- VBG showing normal pco2. not getting sedative medication
- CT head normal x 2
- UA negative. B12/Folate/TSH normal. Ammonia level normal
- appreciate psych eval, no new recs
- I expressed to family my opinion that patient has severe dementia with periods of lethargy and likely would be hospice candidate. Hospice consulted.
MALDONADO
-minimal increase due to decreased oral intake
CAD s/p LCX/RCA stenting
Chronic normocytic anemia
Coronary disease
Severe Aortic stenosis s/p TAVR
Essential HTN
HLD
DVT ppx: SC Heparin
Code: DNR per prior records

Anticipated Discharge: Today
Subjective/Interval History
-
Date of Service: September 23, 2023
comfortable, no reported pain problems
Objective Data
-
Vital Signs:
Vital Signs
Temp Pulse Resp BP Pulse Ox
100.1 F 69 16 110/56 92
09/23/23 08:31 09/23/23 08:31 09/23/23 08:31 09/23/23 08:31 09/23/23 08:31
I&O
09/22/23 09/23/23 09/24/23
06:59 06:59 06:59
Intake Total 0 / 0
Output Total 400 / 400
Balance -400 / -400
Review of Systems
-
Unable to obtain full review of systems at this time due to: Acuity
Physical Exam
-
General: Comfortable; Negative No Apparent Distress
HEENT: Oxygen
Respiratory: Rhonchi
GI: Soft and Nontender
Musculoskeletal: Edema, Right Lower Extrem and Edema, Left Lower Extrem
Neuro: Negative Awake or Alert
[2023-09-23 15:00] VITALS: BP 118/54
--- NOTE | 2023-09-23 17:00 | PTCARENOTE ---
Pt on comfort measures. Pt resting comfortably in bed and responsive to tactile stimuli. Oral care provided.
[2023-09-23] MEDS: TYLENOL/FEVERALL 650 MG RECTAL (18:03)
[2023-09-23 23:00] VITALS: BP 104/49
[2023-09-24 07:00] VITALS: BP 93/47
[2023-09-24] MEDS: DESENEX/MITRAZOL/ZEASORB 1 APPLIC TOPICAL ×2 (08:43→20:37)
[2023-09-24] MEDS: LOTRIMIN 1% CREAM 1 APPLIC TOPICAL ×2 (08:44→20:37)
[2023-09-24] MEDS: MIRALAX PO (08:45)
--- NOTE | 2023-09-24 13:33 | CM ---
Patient continues to have poor Po intake. On comfort measures. Family has decided not to pursue any aggressive treatment.
Plan: Case management will continue to follow and assist with discharge planning. Patient on morphine and ativan drip.
--- NOTE | 2023-09-24 14:17 | W.PN.UPDATE ---
Update Note
Progress Note Update
Assessment
#Left lower mandible odontogenic abscess involving tooth #21
Left facial cellulitis
#Parapharyngeal mass
Significant dysphagia
-per ENT, no concern that mass is causing aspiration and would not offer specific treatment or recommend biopsy
#Aspiration pneumonia
#Hypokalemia
#Facial deviation likely from L facial cellulitis- NO CVA
#Right hip pressure inj stage II - POA
#Metastatic prostate cancer
- Multiple bony metastases noted on prior imaging.
- PET done 10/2021 with only FDG avid lesion noted in L3.� Other lesions sclerotic.
#TME - waxing and waning throughout this hospitalization
Suspected underlying vascular dementia
#MALDONADO
#CAD s/p LCX/RCA stenting
#Chronic normocytic anemia
#Coronary disease
#Severe Aortic stenosis s/p TAVR
#Essential HTN
#HLD
#DNR status
Plan
Patient on comfort care and appears to be comfortable
Shallow respirations-rapid
Discussed with nursing
--- NOTE | 2023-09-24 14:22 | PN.CDI ---
CDI
- -
CDI:
Physician Documentation Request
Admit Date: 09/07/23 21:00
Dear Doctor Roque,
Patient admitted with dental abscess.
09/23 Hospitalist PN: 'BMP showing signs of volume depletion with some hyponatremia'
Laboratory Tests
09/20/23 09/21/23
06:18 08:00
Sodium 146 H 147 H
Based on the above, could you clarify in the progress notes, the appropriate diagnosis, if significant, that supports the above abnormalities and additional evaluation, monitoring and/or treatment rendered:
Hypernatremia
Hyponatremia (documentation complete)
Other
Use of terms such as suspected, likely, concern for, or probable (associated with a specific diagnosis that is being evaluated, monitored, or treated as if it exists) are acceptable and can be coded in the inpatient setting, when documented at the
time of discharge.
Thank you,
Maria Alejandra Lincoln RN, BSN
CDI Specialist
Available via [place] text
Please use your independent medical judgment in providing your response.
[2023-09-24 15:00] VITALS: BP 98/45
--- NOTE | 2023-09-24 17:52 | PTCARENOTE ---
pt has calmed down since Haldol administration although remains restless although slower in nature and continues to with agitation and aggressiveness care attempts to be rendered. safe calm environment continues to be in place. this RN continues
to be at bedside with pt. one to one staff to be present at change of shift.
[2023-09-24 23:00] VITALS: BP 95/57
[2023-09-25 07:00] VITALS: BP 97/46
[2023-09-25] MEDS: MIRALAX PO (07:44)
[2023-09-25] MEDS: DESENEX/MITRAZOL/ZEASORB 1 APPLIC TOPICAL (11:15)
[2023-09-25] MEDS: LOTRIMIN 1% CREAM 1 APPLIC TOPICAL (11:16)
--- NOTE | 2023-09-25 11:42 | W.PN.UPDATE ---
Update Note
Progress Note Update
On exam
very short of breath and rapid respirations, Gurgling and a lot of secretions.
Coarse BS
Looks uncomfortable.
#Left lower mandible odontogenic abscess involving tooth #21
Left facial cellulitis
#Parapharyngeal mass
Significant dysphagia
-per ENT, no concern that mass is causing aspiration and would not offer specific treatment or recommend biopsy
#Aspiration pneumonia
#Hypokalemia
#Facial deviation likely from L facial cellulitis- NO CVA
#Right hip pressure inj stage II - POA
#Metastatic prostate cancer
- Multiple bony metastases noted on prior imaging.
- PET done 10/2021 with only FDG avid lesion noted in L3.� Other lesions sclerotic.
#TME - waxing and waning throughout this hospitalization
Suspected underlying vascular dementia
#MALDONADO
#CAD s/p LCX/RCA stenting
#Chronic normocytic anemia
#Coronary disease
#Severe Aortic stenosis s/p TAVR
#Essential HTN
#HLD
#DNR status
Plan
Patient on comfort care and appears to be roseanne uncomfortable
Shallow respirations-rapid with gurgling.
Will give 2 mg morphine now and start morphine protocol. gtt if needed
Scopolamine patch and glycopyrrolate prn.
D/W RN at bed side
D/W Daughter at bed side
[2023-09-25] MEDS: MORPHINE SULFATE 2 MG IV ×2 (11:44→14:22)
[2023-09-25] MEDS: ROBINUL 0.200000000000000011 MG IV (12:14)
[2023-09-25] MEDS: MORPHINE 100 IV (13:55)
[2023-09-25] MEDS: TRANSDERM-SCOP 1 PATCH TRANSDERM (14:13)
[2023-09-25 15:00] VITALS: BP 76/30
[2023-09-25] MEDS: TYLENOL/FEVERALL 650 MG RECTAL (18:00)
--- NOTE | 2023-09-25 21:28 | W.PN.DEATH ---
Pronouncement of
-
Called to see patient to pronounce.
No spontaneous heart tones or respirations noted.
Patient not responsive to verbal stimuli.
Patient is pronounced .
Time of :
Date of : 09/25/23
Cause of : aspiration pneumonia d/t dysphagia d/t severe dementia
Family Notified: Yes (amos- son, he will call sister lucas as no answer)
--- NOTE | 2023-09-25 23:35 | PTCARENOTE ---
RN checked on pt at change of shift around 0. pt looked comfortable and slow respirations. RN came back to do an assessment of pt and found pt to look decreased. RN did not hear a heartbeat or feel a pulse. PAM Christian notified and she came
up to pronounce at 2123. personal belongings left at unit clerks desk for pts family to come claim them tomorrow 09/26/23. family did not come to visit. pt was cleaned up and taken down to the morgue. pt was on a morphine drip, wasted morphine
with second RN as witness.
--- NOTE | 2023-09-26 08:21 | W.PN.UPDATE ---
Update Note
Progress Note Update
Dictation- [id number]
== END 2023-09-25 21:24 | disposition expired | DRG 602 ==
LOC: 3 WEST ACU 21:00
PROVIDERS: Emergency Medicine; Hospitalist; Internal Medicine; Physician Assistant; Registered Nurse; ADMITTING PHYSICIAN Internal Medicine; ATTENDING PHYSICIAN Hospitalist; EMERGENCY PHYSICIAN Emergency Medicine; FAMILY PHYSICIAN Family Medicine; OTHER PHYSICIAN Dentist Oral and Maxillofacial Surgery; OTHER PHYSICIAN Internal Medicine Infectious Disease; OTHER PHYSICIAN Otolaryngology; OTHER PHYSICIAN Psychiatry & Neurology Psychiatry
DX: L03.211 Cellulitis of face (principal); G92.8 Other toxic encephalopathy; J69.0 Pneumonitis due to inhalation of food and vomit; C79.51 Secondary malignant neoplasm of bone; N17.9 Acute kidney failure, unspecified; E87.0 Hyperosmolality and hypernatremia; K04.7 Periapical abscess without sinus; C61 Malignant neoplasm of prostate; F02.C0 Dementia in other diseases classified elsewhere, severe, without behavioral disturbance, psychotic disturbance, mood disturbance, and anxiety; G30.9 Alzheimer's disease, unspecified; I25.10 Atherosclerotic heart disease of native coronary artery without angina pectoris; I35.0 Nonrheumatic aortic (valve) stenosis; I10 Essential (primary) hypertension; E87.6 Hypokalemia; D64.9 Anemia, unspecified; E78.00 Pure hypercholesterolemia, unspecified; L89.151 Pressure ulcer of sacral region, stage 1; L89.202 Pressure ulcer of unspecified hip, stage 2; Z66 Do not resuscitate; Z95.2 Presence of prosthetic heart valve; Z51.5 Encounter for palliative care; Z11.52 Encounter for screening for COVID-19; Z87.891 Personal history of nicotine dependence
CPT/HCPCS: 70450; 70491; 71045; 74230; 80048; 80053; 81003; 82140; 82607; 82746; 82805; 83605; 83735; 84132; 84443; 85025; 85027; 87040; 87811; 92526; 92610; 92611; 93005; 94640; 96361; 96365; 96366; 96375; 97162; 97167; 97530; 99285; Q9967